=== PATIENT | female | born 1965 | race Caucasian/White ===

== ENCOUNTER → 2018-03-15 08:21 | Outpatient (CLI) | payer OTHER, SELFPAY ==
[2018-03-15 08:34] LABS: Basophils # 0.1 K/mm3 (0-0.2); Basophils % 0.9 % (0.1-2.0); Eosinophils # 0.2 K/mm3 (0.0-0.4); Eosinophils % 2.7 % (0.1-12.0); Hematocrit 41.5 % (37.0-47.0); Hemoglobin 13.7 g/dL (12.2-16.2); Lymphocytes % 28.4 K/mm3 (10-50); Mean Corpuscular HGB Conc 32.9 g/dL (31.8-35.4); Mean Corpuscular Volume 85.1 fl (81-99); Mean Platelet Volume 7.9 fl (7.4-10.4); Monocytes # 0.4 K/mm3 (0.1-1.0); Monocytes % 5.3 % (1.7-9.3); Neutrophils # 4.3 K/mm3 (1.8-7.8); Neutrophils % 62.8 % (37.0-80.0); Platelet Count 291 K/mm3 (142-424); Red Blood Count 4.88 M/mm3 (4.20-5.40); Red Cell Distribution Width 13.3 % (11.5-17.5); White Blood Count 6.9 K/mm3 (4.8-10.8)
[2018-03-15 09:30] LABS: Alanine Aminotransferase 19 U/L (12-78); Albumin Level 3.7 gm/dL (3.4-5.0); Albumin/Globulin Ratio 1.2 (1.1-1.8); Alkaline Phosphatase 64 U/L (46-116); Anion Gap 11.3 mEq/L (5-15); Aspartate Amino Transferase 13 U/L (15-37); Bilirubin,Total 0.4 mg/dL (0.2-1.0); Blood Urea Nitrogen 15 mg/dL (7-18); Calcium 8.5 mg/dL (8.5-10.1); Carbon Dioxide 28 mmol/L (21.0-32.0); Chloride 104 mmol/L (98-107); Chol/HDL Ratio 4.8 (1-3.5); Cholesterol 214 mg/dL (140-200); Creatinine,Serum 0.74 mg/dL (0.55-1.02); Estimated Glomerular Filt Rate 83 ml/min (>60); GFR (African American) 100 ML/MIN (>60); Glucose 90 mg/dL (74-106); HDL Cholesterol 45 mg/dL (29-89); LDL Cholesterol 150 mg/dL (0-130); Potassium 4.3 mmoL/L (3.5-5.1); Sodium 139 mmol/L (136-145); Total Protein,Serum 6.7 gm/dL (6.4-8.2); Triglycerides 93 mg/dL (30-200); VLDL Cholesterol 19 mg/dL (0-40)
== END ==
PROVIDERS: Visit Provider Nurse Practitioner Obstetrics & Gynecology
DX: Z01.419 Encounter for gynecological examination (general) (routine) without abnormal findings (principal); R53.82 Chronic fatigue, unspecified
CPT/HCPCS: 36415; 80053; 80061; 85025

== ENCOUNTER → 2018-03-18 16:30 | Outpatient (CLI) | payer OTHER, SELFPAY ==
--- NOTE | 2018-03-18 16:38 | MM_ITS ---
MM Dig screening mamm BI w/CAD CAD Screening ORDERING PHYSICIAN : Chuck Dey MD PATIENT AGE: 52 years GENDER: Female COMPARISON: Previous mammograms: February 2014, 2012, 2011 & 2010 INDICATION: . Routine screening. Hormone via implant previous cyst aspiration. Previous excisional biopsies 12:00 periareolar region right and left breast marked on history sheet. Family history: maternal aunt at 70. Also Paternal aunt. TECHNIQUE: Standard CC and MLO images were obtained. R2 CAD reviewed. FINDINGS: Dense breast bilaterally with dense fibroglandular elements at the central: The breasts extending slightly towards upper-outer quadrant. However we see no dominant mass nor suspicious calcification prior films are helpful expediently significant new findings. I would note mammography is of decreased sensitivity in breast of this diffuse increased density and low threshold for ultrasound breast survey suggested to compliment mammography in breast of this dense architecture, particularly if any palpable areas arise . RIGHT BREAST: Dense appearance throughout with no new findings. LEFT BREAST:Dense breast throughout with similar overall patterns that he back to 2012 ===IMPRESSION: ===== No significant new areas of concern . Dense breasts bilaterally which somewhat decreases the sensitivity of mammography, but no significant change BI-RADS Category: 2 Benign Finding(s) RECOMMENDED FOLLOW-UP: 1YR - 1 YEAR FOLLOW-UP (A letter has been sent to the patient regarding results of the study.) In
== END ==
PROVIDERS: PCP Physician Assistant; Visit Provider Nurse Practitioner Obstetrics & Gynecology
DX: Z12.31 Encounter for screening mammogram for malignant neoplasm of breast (principal)
CPT/HCPCS: 77067

== ENCOUNTER → 2018-05-05 14:51 | Outpatient (POV) | payer OTHER, SELFPAY | PROVIDERS: PCP Physician Assistant; Visit Provider Nurse Practitioner Acute Care | DX: Z00.00 Encounter for general adult medical examination without abnormal findings (principal) ==

== ENCOUNTER → 2019-04-16 15:36 | Outpatient (CLI) | payer OTHER, SELFPAY ==
--- NOTE | 2019-04-16 15:37 | MM_ITS ---
MM Dig screening mamm BI w/CAD ORDERING PHYSICIAN : Chuck Dey MD PATIENT AGE: 53 years GENDER: Female COMPARISON: March 2018, February 2014, INDICATION: ..: Routine Screening Mammogram. Takes progesterone. No new complaints Previous excisional biopsy both breasts. History sheet notes scars at upper-outer quadrant right breast 10 and 11:30 position Previous cyst aspiration. Family history: Maternal and paternal aunt with breast cancer TECHNIQUE: Standard CC and MLO images were obtained. R2 CAD reviewed. Additional axillary cc view both breast included FINDINGS: Dense breast pattern bilaterally which decreases the sensitivity of mammography. However No new focal dominant mass nor suspicious mass. No suspicious calcifications. . Prior films are helpful and supportive stable overall architecture & fibroglandular pattern. RIGHT BREAST:No new areas significant concern follow-up in one year LEFT BREAST:No significant new areas of concern. Ultrasound can be useful to compliment/augment mammography in breast of this dense character. Particularly applicable if any palpable areas arise ... Self breast examination may be of some benefit in this patient to compliment mammography as well in this this regard. IMPRESSION: No significant new areas of concern. Dense breast tissue bilaterally decreases to the mammography Bilateral follow-up in one year recommended, and encouraged. BI-RADS Category: 2 Benign Finding(s) RECOMMENDED FOLLOW-UP: 1YR 1 YEAR FOLLOW-UP (A letter has been sent to the patient regarding results of the study.)
== END ==
PROVIDERS: PCP Physician Assistant; Visit Provider Nurse Practitioner Obstetrics & Gynecology
DX: Z12.31 Encounter for screening mammogram for malignant neoplasm of breast (principal)
CPT/HCPCS: 77067

== ENCOUNTER → 2020-04-19 07:47 | Outpatient (CLI) | payer BC, SELFPAY ==
--- NOTE | 2020-04-19 07:48 | MM_ITS ---
PROCEDURE: MM DIG SCREENING MAMM BI W/CAD Digital Breast Tomosynthesis Included CLINICAL INDICATION: screening xmg There is a history of breast cancer patient's maternal aunt. The patient currently is on estrogen COMPARISON: [facility] DIG MAMM-SCREEN SUMEET from 03/11/2014 [facility] MM Dig screening mamm BI w/CAD from 03/18/2018 DIG MAMM-SCREEN SUMEET from 04/16/2019 TECHNIQUE: Standard CC and MLO images and 3D Tomosynthesis was obtained. R2 CAD reviewed. FINDINGS: Moderate diffuse fibroglandular densities are seen in both breast and the findings of bilateral and symmetrical. There is no new or suspicious lesion in either breast and no suspicious microcalcifications. IMPRESSION: Moderate diffuse breast density with no suspicious lesions seen BI-RAD Category: 1 Negative FOLLOW-UP: 1YR 1 Year Follow-up (A letter has been sent to the patient regarding results of the study.) Moderate diffuse fibroglandular Dictated by: Dr. Nain Rebollar MD 04/22/2020 08:[address] Nain Rebollar MD in [place] 04/22/2020 08:22
== END ==
PROVIDERS: PCP Physician Assistant; Visit Provider Nurse Practitioner Obstetrics & Gynecology
DX: Z12.31 Encounter for screening mammogram for malignant neoplasm of breast (principal)
CPT/HCPCS: 77063; 77067

== ENCOUNTER → 2020-12-14 13:48 | Outpatient (CLI) | payer BC, SELFPAY ==
--- NOTE | 2020-12-14 13:53 | US_ITS ---
PROCEDURE: MM DIG MAMM DX UNILAT RT CAD Digital Breast Tomosynthesis Included ULTRASOUND RIGHT BREAST COMPLETE CLINICAL INDICATION: MASTALGIA The COMPARISON: BB US BREAST-SUMEET from 04/19/2014 MG [facility] MM Dig screening mamm BI w/CAD from 03/18/2018 MG DIG MAMM-SCREEN SUMEET from 04/16/2019 MG MM DIG SCREENING MAMM BI W/CAD from 04/19/2020 US US BREAST RT COMPLETE from 12/14/2020 TECHNIQUE: Standard images of the right breast performed along with spot compression views and 3D tomography. Ultrasound right breast also performed. FINDINGS: There is dense fibroglandular tissue. This limits evaluation the breast and could obscure underlying lesions. No discrete mass. No malignant appearing mass or malignant-appearing microcalcification. There is some questionable calcifications in the superior aspect of the right breast. These however are not duplicated on the spot view and may have been due to artifact. Also not duplicated on the CC view. Right breast ultrasound: At the 10 o'clock region of the right breast there are 2 small hypoechoic nodules each measuring approximately 4 mm. These are indeterminate. At least 1 of these areas did appear to be present on 04/19/2014 and are unchanged. No suspicious nodules are evident. IMPRESSION: Probably benign findings. Recommend six-month sonographic and mammographic follow-up along with the left mammogram. BI-RAD Category: 3 Probably Benign Finding Short Term Follow-up FOLLOW-UP: 6M 6Month Follow-up (A letter has been sent to the patient regarding results of the study.) Dictated by: Tien Casarez MD 12/16/2020 12:05 Tien Casarez MD in [place] 12/16/2020 12:05
== END ==
PROVIDERS: PCP Physician Assistant; Visit Provider Physician Assistant
DX: N64.4 Mastodynia (principal)
CPT/HCPCS: 76641; 77061; 77065; G0279

== ENCOUNTER 2021-04-25 08:00 | Outpatient (RCR) | payer BC, SELFPAY | END 2021-04-26 14:00 | disposition home or self-care (01) | LOC: PT.CARL 08:00 | PROVIDERS: PCP Physician Assistant; Visit Provider Orthopaedic Surgery | DX: M75.22 Bicipital tendinitis, left shoulder (principal) | CPT/HCPCS: 97010; 97014; 97033; 97035; 97110; 97140; 97163; G0283 ==

== ENCOUNTER 2021-06-02 07:00 | Outpatient (RCR) | payer BC, SELFPAY | END 2021-07-17 11:27 | disposition home or self-care (01) | LOC: PT.CARL 07:00 | PROVIDERS: Visit Provider Orthopaedic Surgery | DX: M54.2 Cervicalgia (principal) | CPT/HCPCS: 97010; 97012; 97014; 97033; 97110; 97140; 97163; G0283 ==

== ENCOUNTER → 2021-06-16 13:49 | Outpatient (CLI) | payer BC, SELFPAY ==
--- NOTE | 2021-06-16 13:49 | MM_ITS ---
PROCEDURE: MM DIG MAMM BI DX W/CAD Digital Breast Tomosynthesis Included CLINICAL INDICATION: 6 month follow up to abnormal xmg COMPARISON: MG DIG MAMM-SCREEN SUMEET from 04/16/2019 MG MM DIG SCREENING MAMM BI W/CAD from 04/19/2020 MG MM DIG MAMM DX UNILAT RT CAD from 12/14/2020 US US BREAST RT COMPLETE from 12/14/2020 US US BREAST RT COMPLETE from 06/16/2021 TECHNIQUE: Standard CC and MLO images and 3D Tomosynthesis was obtained. R2 CAD reviewed. FINDINGS: Dense fibroglandular tissue. No malignant appearing mass, malignant-appearing microcalcification, architectural distortion, skin thickening asymmetric density. Right breast ultrasound: Stable 3 mm hypoechoic nodule in the outer right breast at 10 o'clock with additional stable hypoechoic nodule in the outer aspect of the right breast. No malignant appearing mass apparent. There is a 3 mm hypoechoic nodule also at 11 o'clock outer aspect unchanged IMPRESSION: Benign findings BI-RAD Category: 2 Benign Finding FOLLOW-UP: 1 YR 1 Year Follow-up (A letter has been sent to the patient regarding results of the study.) Dictated by: Tien Casarez MD 06/23/2021 17:46 Tien Casarez MD in [place] 06/23/2021 17:46
== END ==
PROVIDERS: PCP Physician Assistant; Visit Provider Nurse Practitioner Obstetrics & Gynecology
DX: R92.8 Other abnormal and inconclusive findings on diagnostic imaging of breast (principal)
CPT/HCPCS: 76641; 77062; 77066; G0279

== ENCOUNTER → 2021-11-29 07:56 | Outpatient (CLI) | payer BC, SELFPAY ==
[2021-11-29 14:11] LABS: Basophils # 0.1 K/mm3 (0-0.2); Basophils % 1.4 % (0.1-2.0); Eosinophils # 0.5 K/mm3 (0.0-0.4); Eosinophils % 8.1 % (0.1-12.0); Hematocrit 41.2 % (37.0-47.0); Hemoglobin 13.6 g/dL (12.2-16.2); Lymphocytes # 1.7 K/mm3 (0.7-4.5); Lymphocytes % 27.5 % (10-50); Mean Corpuscular Hemoglobin 27.9 pg (27.0-31.2); Mean Corpuscular Volume 84.6 fl (81-99); Mean Platelet Volume 9.2 fl (7.4-10.4); Monocytes # 0.3 K/mm3 (0.1-1.0); Neutrophils # 3.7 K/mm3 (1.8-7.8); Platelet Count 305 K/mm3 (142-424); Red Blood Count 4.87 M/mm3 (4.20-5.40); Red Cell Distribution Width 13.1 % (11.5-17.5); White Blood Count 6.3 K/mm3 (4.8-10.8)
[2021-11-29 14:40] LABS: Free T4 (Free Thyroxine) 0.83 ng/dl (0.78-2.19)
[2021-11-29 14:56] LABS: Thyroid Stimulating Hormone 1.64 uIU/mL (0.465-4.68)
[2021-11-30 12:15] LABS: Estradiol 49.6 pg/mL (.); Triiodothyronine (T3) Free 4.9 pg/mL (2.0-4.4)
[2021-12-01 22:08] LABS: Testost., % Free+Weakly Bound 9.4 % (3.0-18.0); Testost., FW Bound 4.3 ng/dL (0.0-9.5); Testosterone,Total 46 ng/dL (4-50)
== END ==
PROVIDERS: Visit Provider Physician Assistant
DX: I10 Essential (primary) hypertension (principal); E61.1 Iron deficiency; E34.1 Other hypersecretion of intestinal hormones; E03.9 Hypothyroidism, unspecified; D64.9 Anemia, unspecified; Z79.891 Long term (current) use of opiate analgesic
CPT/HCPCS: 36415; 82670; 84144; 84402; 84403; 84439; 84443; 84481; 85025

== ENCOUNTER → 2021-12-19 14:31 | Outpatient (POV) | payer BC, SELFPAY | PROVIDERS: Visit Provider Dermatology | DX: Z00.00 Encounter for general adult medical examination without abnormal findings (principal) ==

== ENCOUNTER 2022-01-15 08:00 | Outpatient (RCR) | payer BC, SELFPAY | END 2022-01-16 15:10 | disposition home or self-care (01) | LOC: PT.CARL 08:00 | PROVIDERS: PCP Physician Assistant; Visit Provider Orthopaedic Surgery | DX: M75.22 Bicipital tendinitis, left shoulder (principal); M75.42 Impingement syndrome of left shoulder; S46.212D Strain of muscle, fascia and tendon of other parts of biceps, left arm, subsequent encounter | CPT/HCPCS: 97010; 97014; 97033; 97035; 97110; 97140; 97163; 97164; 97530; G0283 ==

== ENCOUNTER → 2022-03-20 08:00 | Outpatient (POV) | payer BC, SELFPAY | PROVIDERS: Visit Provider Dermatology | DX: Z00.00 Encounter for general adult medical examination without abnormal findings (principal) ==

== ENCOUNTER → 2022-03-22 09:20 | Outpatient (CLI) | payer BC, SELFPAY ==
[2022-03-22 14:12] LABS: Basophils # 0.2 K/mm3 (0-0.2); Basophils % 2.1 % (0.1-2.0); Eosinophils # 0.6 K/mm3 (0.0-0.4); Eosinophils % 8.7 % (0.1-12.0); Hematocrit 40.2 % (37.0-47.0); Hemoglobin 13.4 g/dL (12.2-16.2); Lymphocytes # 1.7 K/mm3 (0.7-4.5); Lymphocytes % 23.4 % (10-50); Mean Corpuscular HGB Conc 33.3 g/dL (31.8-35.4); Mean Corpuscular Hemoglobin 28.9 pg (27.0-31.2); Mean Corpuscular Volume 86.9 fl (81-99); Monocytes # 0.4 K/mm3 (0.1-1.0); Monocytes % 5.7 % (1.7-9.3); Neutrophils # 4.4 K/mm3 (1.8-7.8); Neutrophils % 60.2 % (37.0-80.0); Platelet Count 284 K/mm3 (142-424); Red Blood Count 4.63 M/mm3 (4.20-5.40); Red Cell Distribution Width 13.3 % (11.5-17.5); White Blood Count 7.3 K/mm3 (4.8-10.8)
[2022-03-22 14:36] LABS: Free Thyroxine Index 2.3 ug/dL (5.93-13.13); T4 (Thyroxine) 7.8 ug/dl (5.53-11.0); Triiodothryronine (T3) Uptake 29 % (23.5-40.5)
[2022-03-22 14:49] LABS: Thyroid Stimulating Hormone 0.27 uIU/mL (0.465-4.68)
[2022-03-23 08:19] LABS: Estradiol 24.2 pg/mL (.); Progesterone 2.3 ng/mL (.); Triiodothyronine (T3) Free 3.8 pg/mL (2.0-4.4)
[2022-04-02 16:58] LABS: Testosterone, Total, LC/MS 76.2 ng/dL (.)
== END ==
PROVIDERS: Visit Provider Physician Assistant
DX: E03.4 Atrophy of thyroid (acquired) (principal); E61.1 Iron deficiency; I10 Essential (primary) hypertension; D64.9 Anemia, unspecified; R51.9 Headache, unspecified; R73.01 Impaired fasting glucose; Z13.9 Encounter for screening, unspecified; Z79.890 Hormone replacement therapy
CPT/HCPCS: 36415; 82670; 84144; 84403; 84436; 84443; 84479; 84481; 85025

== ENCOUNTER → 2022-05-22 13:09 | Outpatient (POV) | payer BC, SELFPAY | PROVIDERS: Visit Provider Dermatology | DX: Z00.00 Encounter for general adult medical examination without abnormal findings (principal) ==

== ENCOUNTER → 2022-06-22 07:44 | Outpatient (CLI) | payer BC, SELFPAY ==
--- NOTE | 2022-06-22 07:44 | MM_ITS ---
PROCEDURE INFORMATION: Exam: MG Bilateral Screening 3D Mammography Exam date and time: 06/22/2022 7:57 AM Age: 56 years old Clinical indication: Screening. Maternal aunt had breast cancer. TECHNIQUE: Imaging protocol: Bilateral Screening tomosynthesis and 2D mammography including computer-aided detection (CAD) when performed. COMPARISON: 1. MG MM DIG MAMM BI DX W/CAD 06/16/2021 1:51 PM 2. MG MM DIG MAMM DX UNILAT RT CAD 12/14/2020 2:13 PM 3. MG MM DIG SCREENING MAMM BI W/CAD 04/19/2020 8:00 AM 4. MG DIG MAMM-SCREEN SUMEET 04/16/2019 3:45 PM FINDINGS: MAMMOGRAPHY: Breast composition: The breasts are heterogeneously dense, which may obscure small masses. Mass: None. Architectural distortion: None. Calcifications: No suspicious calcifications. Asymmetric density: None. Skin thickening: None. Axillary adenopathy: None. IMPRESSION: No mammographic evidence of malignancy. Annual screening is recommended unless otherwise clinically indicated. ASSESSMENT: BI-RADS Category 1: Negative
== END ==
PROVIDERS: PCP Physician Assistant; Visit Provider Nurse Practitioner Obstetrics & Gynecology
DX: Z12.31 Encounter for screening mammogram for malignant neoplasm of breast (principal)
CPT/HCPCS: 77063; 77067

== ENCOUNTER → 2022-06-26 15:26 | Outpatient (POV) | payer BC, SELFPAY | PROVIDERS: Visit Provider Dermatology | DX: Z00.00 Encounter for general adult medical examination without abnormal findings (principal) ==

== ENCOUNTER 2022-06-28 21:29 | Emergency (ER) | payer BC, SELFPAY ==
[2022-06-28 22:35] VITALS: BP 0/0; PULSE 0; RESP 0; TEMP -17.7; TEMP 0; O2SAT 0
== END 2022-06-28 22:49 | disposition left against medical advice (07) ==
LOC: ER 22:39
PROVIDERS: Emergency Provider Emergency Medicine; PCP Physician Assistant
DX: Z53.21 Procedure and treatment not carried out due to patient leaving prior to being seen by health care provider (principal)

== ENCOUNTER → 2022-07-17 08:06 | Outpatient (POV) | payer BC, SELFPAY | PROVIDERS: Visit Provider Dermatology | DX: Z00.00 Encounter for general adult medical examination without abnormal findings (principal) ==

== ENCOUNTER → 2022-07-24 09:40 | Outpatient (CLI) | payer BC, SELFPAY ==
[2022-07-24 15:56] LABS: Basophils # 0.1 K/mm3 (0-0.2); Basophils % 1.7 % (0.1-2.0); Eosinophils # 0.8 K/mm3 (0.0-0.4); Eosinophils % 9.5 % (0.1-12.0); Hematocrit 43.3 % (37.0-47.0); Hemoglobin 13.6 g/dL (12.2-16.2); Lymphocytes % 24.6 % (10-50); Mean Corpuscular HGB Conc 31.5 g/dL (31.8-35.4); Mean Corpuscular Hemoglobin 27.8 pg (27.0-31.2); Mean Corpuscular Volume 88.3 fl (81-99); Mean Platelet Volume 9.9 fl (7.4-10.4); Monocytes # 0.4 K/mm3 (0.1-1.0); Monocytes % 4.9 % (1.7-9.3); Neutrophils # 4.8 K/mm3 (1.8-7.8); Neutrophils % 59.5 % (37.0-80.0); Platelet Count 342 K/mm3 (142-424); Red Cell Distribution Width 13.3 % (11.5-17.5); White Blood Count 8.1 K/mm3 (4.8-10.8)
[2022-07-24 16:30] LABS: Free T4 (Free Thyroxine) 0.96 ng/dl (0.78-2.19)
[2022-07-24 16:45] LABS: Thyroid Stimulating Hormone 0.32 uIU/mL (0.465-4.68)
[2022-07-26 08:14] LABS: Triiodothyronine (T3) Free 4.1 pg/mL (2.0-4.4)
[2022-07-26 11:32] LABS: Progesterone 4.4 ng/mL (.)
[2022-08-02 00:08] LABS: Testosterone, Total, LC/MS 54 ng/dL (.)
== END ==
PROVIDERS: PCP Physician Assistant; Visit Provider General Practice
DX: E03.4 Atrophy of thyroid (acquired) (principal); R73.01 Impaired fasting glucose; I10 Essential (primary) hypertension; R51.9 Headache, unspecified; E61.1 Iron deficiency; D64.9 Anemia, unspecified; Z79.890 Hormone replacement therapy; Z13.9 Encounter for screening, unspecified
CPT/HCPCS: 36415; 82670; 84144; 84403; 84439; 84443; 84481; 85025

== ENCOUNTER → 2022-08-21 07:58 | Outpatient (POV) | payer BC, SELFPAY | PROVIDERS: Visit Provider Dermatology | DX: Z00.00 Encounter for general adult medical examination without abnormal findings (principal) ==

== ENCOUNTER → 2022-12-07 14:45 | Outpatient (CLI) | payer BC, SELFPAY ==
--- NOTE | 2022-12-07 14:45 | CT_ITS ---
FINAL REPORT CLINICAL HISTORY: lung cancer screening FORMER SMOKER 1 PPD X30 YEARS WHEN SMOKING QUIT 8 YEARS AGO FINDINGS: Axial images were obtained from the lung apex to the mid abdomen by computed tomography. Low-dose protocol was utilized. CTDl vol(mGy): 2.90 DLP (mGy-cm): 96.64 FINDINGS: There is no axillary adenopathy. There is no hilar or mediastinal adenopathy. The heart size is normal. There is no pericardial or pleural effusion. Lung window images demonstrate a 14 mm ground-glass nodule in the anterior left upper lobe on image 13. There is a 4 mm lingular nodule on image 52. There is a 4 mm left lower lobe nodule on image 58. A 3 mm right lower lobe nodule is seen on image 44. Limited images of the upper abdomen are without acute abnormality. There is no acute osseous abnormality. IMPRESSION: Lung RADS category 2. Recommend 12 month follow-up low-dose chest CT. Reviewed, Interpreted and Dictated by Cherri Hinojosa MD Transcribed by Amy Hood Authenticated and [facility]
== END ==
PROVIDERS: PCP Physician Assistant; Visit Provider Physician Assistant
DX: Z87.891 Personal history of nicotine dependence (principal); Z12.2 Encounter for screening for malignant neoplasm of respiratory organs
CPT/HCPCS: 71271

== ENCOUNTER → 2022-12-24 19:13 | Outpatient (CLI) | payer BC, SELFPAY ==
[2023-01-01 15:37] LABS: F001-IgE Egg White <0.10 kU/L (Class 0); F002-IgE Milk 0.23 kU/L (Class 0/I); F003-IgE Codfish <0.10 kU/L (Class 0); F004-IgE Wheat <0.10 kU/L (Class 0); F010-IgE Sesame Seed <0.10 kU/L (Class 0); F013-IgE Peanut <0.10 kU/L (Class 0); F014-IgE Soybean <0.10 kU/L (Class 0); F024-IgE Shrimp <0.10 kU/L (Class 0); F256-IgE Walnut <0.10 kU/L (Class 0); F338-IgE Scallop <0.10 kU/L (Class 0)
== END ==
PROVIDERS: PCP Physician Assistant; Visit Provider Internal Medicine Gastroenterology
DX: K20.0 Eosinophilic esophagitis (principal)
CPT/HCPCS: 86003; 86008

== ENCOUNTER → 2023-02-18 14:21 | Outpatient (CLI) | payer BC, SELFPAY ==
--- NOTE | 2023-02-18 14:25 | XR_ITS ---
FINAL REPORT CLINICAL HISTORY: pain left foot x 10 days FINDINGS: LEFT FOOT Three views of the left foot demonstrate no acute fracture or dislocation. The visualized joint spaces are normally aligned. The joint spaces are preserved. The soft tissues are unremarkable. IMPRESSION: No acute bony abnormality. Reviewed, Interpreted and Dictated by Shilo Harper MD Transcribed by Zulay Locke Authenticated and [facility]
== END ==
PROVIDERS: PCP Physician Assistant; Visit Provider Nurse Practitioner Family
DX: M79.672 Pain in left foot (principal)
CPT/HCPCS: 73630

== ENCOUNTER → 2023-07-05 15:18 | Outpatient (CLI) | payer BC, SELFPAY ==
--- NOTE | 2023-07-05 15:18 | MM_ITS ---
PROCEDURE INFORMATION: Exam: MG Bilateral Screening 3D Mammography Exam date and time: 07/05/2023 3:20 PM Age: 57 years old Clinical indication: Screening examination; Family history of breast cancer in aunt TECHNIQUE: Imaging protocol: Bilateral Screening tomosynthesis and 2D mammography including computer-aided detection (CAD) when performed. COMPARISON: 1. MG MM DIG SCREENING MAMM BI W/CAD 06/22/2022 7:57 AM 2. MG MM DIG MAMM BI DX W/CAD 06/16/2021 1:51 PM FINDINGS: MAMMOGRAPHY: Breast composition: The breasts are extremely dense, which lowers the sensitivity of mammography. Mass: None. Architectural distortion: None. Calcifications: No suspicious calcifications. Asymmetric density: None. Skin thickening: None. Axillary adenopathy: None. IMPRESSION: No mammographic evidence of malignancy. Annual screening is recommended unless otherwise clinically indicated. ASSESSMENT: BI-RADS Category 1: Negative
== END ==
PROVIDERS: PCP Physician Assistant; Visit Provider Nurse Practitioner Obstetrics & Gynecology
DX: Z12.31 Encounter for screening mammogram for malignant neoplasm of breast (principal)
CPT/HCPCS: 77063; 77067

== ENCOUNTER → 2023-07-15 09:43 | Outpatient (CLI) | payer BC, SELFPAY ==
--- NOTE | 2023-07-15 09:44 | US_ITS ---
PROCEDURE INFORMATION: Exam: US Right Breast, Complete Exam date and time: 07/15/2023 9:51 AM Age: 57 years old Clinical indication: Concern for right breast lump. Negative extremely dense mammogram 07/05/2023. TECHNIQUE: Imaging protocol: Complete ultrasound of all four quadrants of the right breast and the retroareolar regions, including ultrasound of the axilla when performed. COMPARISON: 1. MG MM DIG SCREENING MAMM BI W/CAD 07/05/2023 3:20 PM 2. US BREAST RT COMPLETE 06/16/2021 2:42 PM FINDINGS: Breast: Right sonography, all 4 quadrants, retroareolar and axilla. Scattered oval hypoechoic avascular masses which are probably complicated avascular cysts, in a similar pattern to 06/16/2021 - the finding at 9 o'clock 6 cm from the nipple corresponds to the palpable concern and measures 0.4 x 0.3 x 0.4 cm. On 06/16/2021, several findings noted at 10 o'clock, the largest measures 0.4 x 0.2 by 0.3 cm. No suspicious cystic and no solid mass demonstrated. Sonographically unremarkable axillary lymph node. IMPRESSION: Palpable concern corresponds to a 0.4 cm probable complicated cyst which is similar to 06/16/2021, correlate clinically and suggest six-month follow-up right sonography unless otherwise clinically indicated.Further evaluation of a palpable abnormality should be based on clinical grounds regardless of radiographic findings or lack thereof. ASSESSMENT: BI-RADS Category 3: Probably benign
== END ==
LOC: RAD 09:44
PROVIDERS: PCP Physician Assistant; Visit Provider Nurse Practitioner Obstetrics & Gynecology
DX: N63.10 Unspecified lump in the right breast, unspecified quadrant (principal)
CPT/HCPCS: 76641

== ENCOUNTER → 2023-10-08 09:01 | Outpatient (CLI) | payer BC, SELFPAY | PROVIDERS: PCP Physician Assistant; Visit Provider Nurse Practitioner Family | DX: M54.50 Low back pain, unspecified (principal); B96.89 Other specified bacterial agents as the cause of diseases classified elsewhere | CPT/HCPCS: 87086 ==

== ENCOUNTER 2023-12-27 15:21 | Outpatient (CLI) | payer BC, SELFPAY ==
--- NOTE | 2023-12-27 15:21 | CT_ITS ---
FINAL REPORT CLINICAL HISTORY: lung cancer screening former smoker x 9 years 2 ppd x 25 yrs FINDINGS: CTDI vol (mGy): 2.90 DLP: 104.[address] images of the chest were obtained using the low-dose protocol for screening. There is no evidence of mediastinal or hilar mass or adenopathy. No axillary mass or adenopathy is identified. On the lung window images, a 15 mm groundglass nodule seen in the left upper lobe which has not significantly changed. There is a lingular nodule measuring 4 mm on image 54 and a 4 mm left lower lobe nodule on image 64 which are both stable. There are calcified granulomas noted. No new mass or nodule is identified. IMPRESSION: Stable pulmonary nodules Lung RADS category 2. Recommend 12 month followup low-dose CT for further evaluation. Reviewed, Interpreted and Dictated by Balaji Marina III, MD Transcribed by Gaye Larsen Authenticated and [facility]
== END 2023-12-27 23:59 ==
LOC: RAD 15:21
PROVIDERS: PCP Nurse Practitioner Family; Visit Provider Nurse Practitioner Obstetrics & Gynecology
DX: Z12.2 Encounter for screening for malignant neoplasm of respiratory organs (principal); Z87.891 Personal history of nicotine dependence
CPT/HCPCS: 71271

== ENCOUNTER 2024-09-08 07:55 | Outpatient (CLI) | payer BC, SELFPAY ==
--- NOTE | 2024-09-08 07:55 | MM_ITS ---
PROCEDURE INFORMATION: Exam: MG Bilateral Screening 3D Mammography Exam date and time: 09/08/2024 7:49 AM Age: 59 years old Clinical indication: Screening exam. TECHNIQUE: Imaging protocol: Bilateral Screening tomosynthesis and 2D mammography including computer-aided detection (CAD) when performed. COMPARISON: 1. MG MM DIG SCREENING MAMM BI W/CAD 07/05/2023 3:20 PM 2. MG MM DIG SCREENING MAMM BI W/CAD 06/22/2022 7:57 AM FINDINGS: MAMMOGRAPHY: Breast composition: The breasts are extremely dense, which lowers the sensitivity of mammography. Mass: No suspicious masses. Architectural distortion: None. Calcifications: No suspicious calcifications. Asymmetric density: None. Skin thickening: None. Axillary adenopathy: None. IMPRESSION: No mammographic evidence of malignancy. Annual screening is recommended unless otherwise clinically indicated. ASSESSMENT: BI-RADS Category 1: Negative.
== END 2024-09-08 23:59 | disposition home or self-care (01) ==
LOC: RAD 07:55
PROVIDERS: PCP Family Medicine; Visit Provider Nurse Practitioner Obstetrics & Gynecology
DX: Z12.31 Encounter for screening mammogram for malignant neoplasm of breast (principal)
CPT/HCPCS: 77063; 77067

== ENCOUNTER 2025-01-22 12:18 | Outpatient (CLI) | payer BC, SELFPAY ==
--- NOTE | 2025-01-22 12:22 | US_ITS ---
PROCEDURE INFORMATION: Exam: US Right Breast, Complete Exam date and time: 01/22/2025 12:20 PM Age: 59 years old Clinical indication: Palpable lump in the right breast upper outer quadrant. TECHNIQUE: Imaging protocol: Complete ultrasound of all four quadrants of the right breast and the retroareolar regions, including ultrasound of the axilla when performed. COMPARISON: US BREAST RT COMPLETE 07/15/2023 9:51 AM FINDINGS: ULTRASOUND: Breast ultrasound findings: In the right breast upper outer quadrant at the palpable area of concern, there is a complicated cyst measuring 0.4 x 0.4 x 0.4 cm. Other scattered sub cm similar simple and complicated cysts are noted throughout the right breast. There is no dominant mass, suspicious shadowing, or distortion. No axillary adenopathy. IMPRESSION: 1. Probably benign cystic changes in the right upper outer quadrant, without a dominant or suspicious finding. Continued clinical monitoring is recommended, with performance of mammography and repeat ultrasound if the palpable area becomes more concerning. Further evaluation of a palpable abnormality should be based on clinical grounds regardless of radiographic findings or lack thereof. 2. Six-month follow-up ultrasound of the right breast is recommended, for close surveillance of the cystic areas in the upper-outer quadrant. ASSESSMENT: BI-RADS Category 3: Probably benign.
== END 2025-01-22 23:59 | disposition home or self-care (01) ==
LOC: RAD 12:19
PROVIDERS: PCP Nurse Practitioner Family; Visit Provider Nurse Practitioner Family
DX: N63.11 Unspecified lump in the right breast, upper outer quadrant (principal)
CPT/HCPCS: 76641

== ENCOUNTER 2025-02-10 10:17 | Outpatient (CLI) | payer BC, SELFPAY ==
[2025-02-10 10:37] LABS: Basophils # 0.1 K/mm3 (0-0.2); Basophils % 1.2 % (0.1-2.0); Eosinophils # 0.2 K/mm3 (0.0-0.4); Eosinophils % 3.1 % (0.1-12.0); Hematocrit 37.9 % (37.0-47.0); Hemoglobin 12.9 g/dL (12.2-16.2); Mean Corpuscular Hemoglobin 28.8 pg (27.0-31.2); Mean Corpuscular Volume 84.6 fl (81-99); Mean Platelet Volume 10.1 fl (7.4-10.4); Monocytes # 0.5 K/mm3 (0.1-1.0); Monocytes % 6.8 % (1.7-9.3); Neutrophils # 4.7 K/mm3 (1.8-7.8); Neutrophils % 62.5 % (37.0-80.0); Platelet Count 268 K/mm3 (142-424); Red Blood Count 4.48 M/mm3 (4.20-5.40); Red Cell Distribution Width 12.9 % (11.5-17.5); White Blood Count 7.5 K/mm3 (4.8-10.8)
[2025-02-10 11:07] LABS: Anion Gap 14.1 mEq/L (5-15); Blood Urea Nitrogen 13 mg/dl (7-17); Calcium 9.4 mg/dl (8.4-10.2); Carbon Dioxide 29 mmol/L (22.0-30.0); Chloride 98 mmol/L (98-107); Estimated Glomerular Filt Rate 86 ml/min (>60); GFR (African American) 104 ML/MIN (>60); Glucose 80 mg/dl (74-100); Potassium 4.1 mmoL/L (3.5-5.1); Sodium 137 mmol/L (136-145)
[2025-02-10] MEDS: KETOROLAC 30MG/ML VIAL 15 MG IM (11:15)
[2025-02-10 11:30] VITALS: BP 122/83; PULSE 72; RESP 18; TEMP 36.6; O2SAT 96
== END 2025-02-10 11:30 | disposition home or self-care (01) ==
LOC: LAB 10:18 → INF 10:35
PROVIDERS: PCP Nurse Practitioner Family; Visit Provider Surgery
DX: N60.01 Solitary cyst of right breast (principal)
CPT/HCPCS: 36415; 80048; 85025; 96372; J1885

== ENCOUNTER 2025-03-17 09:53 | Outpatient (CLI) | payer BC, SELFPAY ==
--- OUTSIDE RECORDS SUMMARY | 2025-03-17 09:57 | XMS_ITS | Clinical Summary ---
Author Organization [facility] , [facility] Address [address] [place] [address] Phone Care Team Providers Care Automotive Consultant Name Role Phone Robson WISDOM, Celio Cerda Unavailable [phone] Constanza Cannon PA-C Unavailable [phone] Reason for Visit and Chief Complaint The Chief Complaint is: right knee pain, The Chief Complaint is: victorino knee pain Problems Includes: Problems addressed during this encounter and other active Problems All Visits Onset Date Resolved Date Provider Condition S tatus Joint Pain in the Right Knee 05/05/2024 Shikha Solano PA-C Active Last Documented On 4 8:57AM ; [facility], [facility] Joint Pain in the Left Wrist 03/22/2021 Celio Chance MD Active Last Documented On 1 3:14PM ; [facility], [facility] Joint Pain, Localized in the Left Shoulder 03/22/2021 Celio Chance MD Active Last Documented On 1 8:09AM ; [facility], [facility] Plan of Treatment No Plan of Treatment Recorded Assessments Includes: Assessments from this encounter No Assessments Recorded Medical Equipment - Implanted Devices Includes: Current Devices No Medical Equipment Recorded Medications Includes: Medications discussed during this encounter and other current Medications Current Medications (continue as prescribed) Escitalopram Oxalate 10 MG Oral Tablet 12/14/2024 Pr ovider: Diagnosis: Last Documented On 5 9:25AM By Mitchell Mccormack ; [facility], [facility] Omeprazole 40 MG Oral Capsule Delayed Release 12/13/19 Provider: Diagnosis: Last Documented On 5 9:25AM By Mitchell Mccormack ; [facility], [facility] Atorvastatin Calcium 10 MG Oral Tablet 12/01/2024 Pr ovider: Diagnosis: Last Documented On 5 9:25AM By Mitchell Mccormack ; [facility], [facility] Omeprazole 40 MG Oral Capsule Delayed Release 09/24/20 Provider: Diagnosis: Last Documented On 5 9:25AM By Mitchell Mccormack ; [facility], [facility] Fluconazole 150 MG Oral Tablet 07/22/2024 Provider: Diagnosis: Last Documented On 5 9:25AM By Mitchell Mccormack ; [facility], [facility] Past Medications on file Percocet 5-325 MG Oral Tablet 10/06/2021 - 10/21/2021 Provider: Celio Chance MD Diagnosis: 1 po q 4h prn pain Last Documented On 12:54PM By Celio Chance ; [facility], [facility] Medications Administered Includes: Administered Medications from this encounter No Administered Medications Recorded Vital Signs Includes: Vital Signs from this encounter Vital Name 01/15/2025 03:26P Height (in) 69 Weight (lb) 162 Body Mass Index 23.9 Body Surface Area 1.9 Note: mgg Last Documented: On 01/15/2025 3:27PM ; [facility] Results Includes: Results discussed during this encounter No Results Recorded For Specified Dates History of Present Illness Includes: History of Present Illness from this encounter NIKIA Gates is a 59 year old female. - Allergy list reviewed - Problem list reviewed - Medication list reviewed - Previous history of new onset pain 04/28/2024 - Pain is occasional (25% of the time) - Patient pain level from 1-10: 5 - Yes, previous treatment. - - Review of medications documented Patient here today for orthovisc injection #4 of right knee and orthovisc injection #1 of left knee. Review of systems: All systems within normal limits with exception of musculoskeletal The patient's medications, medication allergies, Past Medical and Surgical History, pertinent Family History, Social History and ten point Review of Systems was reviewed by me with the patient per the registration sheet dated today. It was then signed today and scanned into the electronic record. Physical Exam: CONSTITUTIONAL: Well developed, well groomed, well nourished patient in no acute distress who appears stated age, height and weight. PSYCHIATRIC: The patient is alert and oriented to person, place, date and situation. Mood and affect are normal for current situation. NEUROLOGICAL: Sensation normal bilateral upper and lower extremities. LYMPHATIC: No pitting edema noted in the lower extremities. SKIN: No lesions noted on upper or lower extremities. Skin is dry, warm and with normal turgor. VASCULAR: No swelling in upper or lower extremities other than described below in extremity exam. Dorsalis Pedis Pulses normal in lower extremities. GAIT AND STATION: Normal gait without assistive devices. Station normal. Musculoskeletal: See previous Imaging: Previous imaging obtained THERAPY Right Knee: The risks of the procedure were explained and verbally acknowledged by the patient. Verbal consent was obtained. The knee was prepped with an alcohol pad. The knee was then put in a flexed position in the intercondylar notch was palpated. The skin at the site of injection was then anesthetized with ethyl chloride spray. A 25-gauge needle was inserted into the retropatellar space. Aspiration was done, confirming no intravascular location. The Orthovisc was then injected into the anterior space of the knee joint without complication. The needle was withdrawn and Band-Aid was applied. Patient tolerated procedure well. Left Knee: The risks of the procedure were explained and verbally acknowledged by the patient. Verbal consent was obtained. The knee was prepped with an alcohol pad. The knee was then put in a flexed position in the intercondylar notch was palpated. The skin at the site of injection was then anesthetized with ethyl chloride spray. A 25- gauge needle was inserted into the retropatellar space. Aspiration was done, confirming no intravascular location. The Orthovisc was then injected into the anterior space of the knee joint without complication. The needle was withdrawn and Band-Aid was applied. Patient tolerated procedure well. Assessment: Right Knee OA Left Knee OA PAST TREATMENT: Patient has failed all conservative measures including the following: Ice, anti inflammatory medication, physical therapy, steroid injections Plan: Patient was given Orthovisc injection 4 of right knee and Orthovisc injection 1 of left knee. She will return next week for repeat injection of the left knee. Social History Description Last Updated Caffeine use 05/05/2024 Last Documented On 3:24PM ; [facility], [facility] Exercising regularly 05/05/2024 Last Documented On 5 3:24PM ; [facility] No recent change in diet 05/05/2024 Last Documented On 5 3:24PM ; [facility] Not a current smoker. 05/05/2024 Last Documented On 5 3:24PM ; [facility] Not using alcohol 05/05/2024 Last Documented On 5 3:24PM ; [facility] Not using drugs 05/05/2024 Last Documented On 5 3:24PM ; [facility], [facility] No recent change in diet 06/05/2021 Last Documented On 5 3:24PM ; [facility] Not a current smoker. 06/05/2021 Last Documented On 5 3:24PM ; [facility] Non-smoker 06/05/2021 Last Documented On 5 3:24PM ; [facility] Smoking Status Unknown Procedures and Surgical History Includes: Procedures from this encounter Procedures Code Diagnosis Performing Provider Service Location Service Date DRAIN/INJECT, JOINT/BURSA (Bilateral Procedure) Bilateral primary osteoarthritis of knee Shikha Solano PA-C [facility] 01/15/2025 Last Documented On 5 3:10PM ; [facility] Orthovisc [place], 2cc (RIGHT) [id number] Unilateral primary osteoarthritis, right knee Shikha Solano PA-C [facility] 01/15/2025 Last Documented On 5 3:10PM ; [facility] Orthovisc [place], 2cc (LEFT) [id number] Unilateral primary osteoarthritis, left knee Shikha Solano PA-C [facility] 01/15/2025 Last Documented On 5 3:10PM ; [facility] Medical History Includes: Medical History addressed during this encounter Description Last Updated Past surgical history non-contributory 0 05/05/2024 Last Documented On 5 3:24PM ; [facility] History of Thyroid Disease 05/05/2024 Last Documented On 5 3:24PM ; [facility] History of depression 06/05/2021 Last Documented On 5 3:24PM ; [facility] No recent immunization for flu 1 Last Documented On 5 3:24PM ; [facility] No recent immunization for pneumococcal pneumonia 06/05/2021 Last Documented On 5 3:24PM ; [facility] Family History Includes: Family History addressed during this encounter Description Last Updated Family history of cancer 05/05/2024 Last Documented On 5 3:24PM ; [facility] Family history of heart disease 05/05/20 Last Documented On 5 3:24PM ; [facility] Review of Systems Includes: Review of Systems from this encounter Systemic: Not feeling tired, no recent weight loss, and no recent weight gain. Head: No headache and no sinus pain. Eyes: No vision problems, no Cataracts, no Glasses/Contacts, and no Glaucoma. Otolaryngeal: No hearing loss and no tinnitus. Cardiovascular: No chest pain or discomfort, no palpitations, no Hypertension, and no High Cholesterol. Pulmonary: No daytime asthma symptoms and no chronic cough. No wheezing. Gastrointestinal: No heartburn and no abdominal pain. No Indigestion, no Peptic Ulcer, no GI Stomach Bleed, no Ulcers, and no Acid Reflux. Endocrine: No hot flashes, no muscle weakness, no Diabetes, no Hypothyroid, and no Hyperthyroid. Hematologic: No easy bleeding. A tendency for easy bruising. No Anemia. Musculoskeletal: No Arthritis and no lower back pain. No soft tissue swelling. Pain localized to one or more joints. Neurological: No dizziness, no convulsions, and no numbness. Psychological: Anxiety. No emotional lability, no depression, and no insomnia. Not crying for no reason. Skin: No dry skin. No Ulcers, no Scars, and no rash. Allergic and Immunologic: No complaint of seasonal allergic reaction. Mental Status Includes: Mental Status from this encounter Description Anxiety Functional Status Includes: Functional Status from this encounter No Functional Status Recorded Physical Exam Includes: Physical Exam from this encounter Allergies Includes: Active Allergies Substance Type Reaction Onset Date Resolved Date Statu s Biaxin Allergy 05/05/2024 Active Last Documented On 5 1:44PM ; [facility], [facility] Encounters Encounter Provider Location Date Check-In Time Check-Out Time Diagnosis [facility] In[facility] Shikha Solano PA-C [facility] 01/15/20 25 3:22PM 4:13PM Insurance Includes: Active Insurance Policies Plan Name Member ID Group # Subscriber Relationship Effect paris Dates 1 - [facility] [id number] Bette, Petrosreg 11/18/2020 - Unknown Clinical Notes Includes: Clinical Notes from this encounter * Progress note Date Encounter Last Documented by 01/15/2025 [facility] In[facility] Last documented on 01/15/2025; 4:30 PM, Shikha Solano PA-C; [facility], [facility] Active Problems & Conditions - Joint Pain in the Left Wrist - Joint Pain in the Right Knee - Joint Pain, Localized in the Left Shoulder Chief Complaint The Chief Complaint is: Victorino knee painThe Chief Complaint is: Right knee pain. Referred Here Referred by self. History of Present Illness Nilay Gates is a 59 year old female. - Allergy list reviewed - Problem list reviewed - Medication list reviewed - Previous history of new onset pain 04/28/2024 - Pain is occasional (25% of the time) - Patient pain level from 1-10: 5 - Yes, previous treatment. - - Review of medications documented Patient here today for orthovisc injection #4 of right knee and orthovisc injection #1 of left knee. Review of systems: All systems within normal limits with exception of musculoskeletal The patient's medications, medication allergies, Past Medical and Surgical History, pertinent Family History, Social History and ten point Review of Systems was reviewed by me with the patient per the registration sheet dated today. It was then signed today and scanned into the electronic record. Physical Exam: CONSTITUTIONAL: Well developed, well groomed, well nourished patient in no acute distress who appears stated age, height and weight. PSYCHIATRIC: The patient is alert and oriented to person, place, date and situation. Mood and affect are normal for current situation. NEUROLOGICAL: Sensation normal bilateral upper and lower extremities. LYMPHATIC: No pitting edema noted in the lower extremities. SKIN: No lesions noted on upper or lower extremities. Skin is dry, warm and with normal turgor. VASCULAR: No swelling in upper or lower extremities other than described below in extremity exam. Dorsalis Pedis Pulses normal in lower extremities. GAIT AND STATION: Normal gait without assistive devices. Station normal. Musculoskeletal: See previous Imaging: Previous imaging obtained THERAPY Right Knee: The risks of the procedure were explained and verbally acknowledged by the patient. Verbal consent was obtained. The knee was prepped with an alcohol pad. The knee was then put in a flexed position in the intercondylar notch was palpated. The skin at the site of injection was then anesthetized with ethyl chloride spray. A 25-gauge needle was inserted into the retropatellar space. Aspiration was done, confirming no intravascular location. The Orthovisc was then injected into the anterior space of the knee joint without complication. The needle was withdrawn and Band-Aid was applied. Patient tolerated procedure well. Left Knee: The risks of the procedure were explained and verbally acknowledged by the patient. Verbal consent was obtained. The knee was prepped with an alcohol pad. The knee was then put in a flexed position in the intercondylar notch was palpated. The skin at the site of injection was then anesthetized with ethyl chloride spray. A 25- gauge needle was inserted into the retropatellar space. Aspiration was done, confirming no intravascular location. The Orthovisc was then injected into the anterior space of the knee joint without complication. The needle was withdrawn and Band-Aid was applied. Patient tolerated procedure well. Assessment: Right Knee OA Left Knee OA PAST TREATMENT: Patient has failed all conservative measures including the following: Ice, anti inflammatory medication, physical therapy, steroid injections Plan: Patient was given Orthovisc injection 4 of right knee and Orthovisc injection 1 of left knee. She will return next week for repeat injection of the left knee. Current Medication - Atorvastatin Calcium 10 MG Oral Tablet 90 days, 0 refills - Escitalopram Oxalate 10 MG Oral Tablet 90 days, 0 refills - Lexapro 10 MG Oral Tablet take as directed 0 days, 0 refills - Lipitor 10 MG Oral Tablet take as directed 0 days, 0 refills - STITCH MARKER Thyroid 60 MG Oral Tablet 30 days, 0 refills - Omeprazole 40 MG Oral Capsule Delayed Release 90 days, 0 refills Past Medical/Surgical History Reported: Immunization History: No recent immunization for flu and not for pneumococcal pneumonia. Diagnoses: Thyroid Disease. Depression Past surgical history non-contributory. Social History Not a current smoker. Not a current smoker. Current diet: No recent change in diet. No recent change in diet. Caffeine use: Caffeine use. Tobacco use: Non-smoker. Alcohol: Not using alcohol. Drug Use: Not using drugs. Habits: Exercising regularly. Allergies - Biaxin Family History Cancer Heart disease Review Of Systems Systemic: Not feeling tired, no recent weight loss, and no recent weight gain. Head: No headache and no sinus pain. Eyes: No vision problems, no Cataracts, no Glasses/Contacts, and no Glaucoma. Otolaryngeal: No hearing loss and no tinnitus. Cardiovascular: No chest pain or discomfort, no palpitations, no Hypertension, and no High Cholesterol. Pulmonary: No daytime asthma symptoms and no chronic cough. No wheezing. Gastrointestinal: No heartburn and no abdominal pain. No Indigestion, no Peptic Ulcer, no GI Stomach Bleed, no Ulcers, and no Acid Reflux. Endocrine: No hot flashes, no muscle weakness, no Diabetes, no Hypothyroid, and no Hyperthyroid. Hematologic: No easy bleeding. A tendency for easy bruising. No Anemia. Musculoskeletal: No Arthritis and no lower back pain. No soft tissue swelling. Pain localized to one or more joints. Neurological: No dizziness, no convulsions, and no numbness. Psychological: Anxiety. No emotional lability, no depression, and no insomnia. Not crying for no reason. Skin: No dry skin. No Ulcers, no Scars, and no rash. Allergic and Immunologic: No complaint of seasonal allergic reaction. Physical Findings - Vitals taken 01/15/2025 03:26 pm mgg Height 69 in Weight 162 lbs Body Mass Index 23.9 kg/m2 Body Surface Area 1.9 m2 Counseling/Education - Tobacco non-user - Use of tobacco assessment performed Notes This dictation was done with voice recognition software and may contain errors and omissions. This dictation was done with voice recognition software and may contain errors and omissions. This dictation was done with voice recognition software and may contain errors and omissions. This dictation was done with voice recognition software and may contain errors and omissions. Care Team - Constanza Cannon PA-C Health Reminders - Assess BMI satisfied 01/15/2025. - Assess Tobacco Use satisfied 01/15/2025.
--- OUTSIDE RECORDS SUMMARY | 2025-03-17 09:57 | XMS_ITS | Data Portability ---
Author Organization [facility] Address [address] [place] [address] Care Team Providers Care Anti Tank Missileman Name Role Phone HYUN CANCHOLA Primary Care Provider [phone] Assessment No assessment recorded. Plan of Treatment Reminders Order Date Submit Date Provider Last Modified By Organization Details Last Modified Time Details Appointments None record ed. Lab None record ed. Referral None record ed. Procedures None record ed. Surgeries None record ed. Imaging None record ed. Medication Orders None record ed. Patient TargetsNo targets recorded. Patient Instructions Encounter Date Encounter Id Patient Instructions Last Modified By Organization Details Last Modified Time 11/02/2024 [id number] 1. Recommended i n lab sleep study 2. F/U W/Results [email or web address] Not available 11/02/2024 11:27:35 We discussed options for sleep apnea including diet and lifestyle changes/weight loss, oral appliances, CPAP, and surgery. We discussed that oral appliances are typically more effective for mild to moderate sleep apnea and the risks of dental issues/TMJ associated with them. We discussed that CPAP is the gold standard of treatment for JEWEL. We discussed with surgical procedure's patient would potentially be a candidate for based of their PSG, BMI, and anatomy. I independently reviewed and evaluated patient's sleep study. Mild sleep apnea, not a candidate for inspire based off degree of apnea. She is very interested in the surgery. Discussed having her do an in lab sleep study to verify the accuracy of the home results, will place referral to see sleep medicine. She prefers to potentially do this in [place] if possible [email or web address] Not available 11/02/2024 12:28:42 Reason for Referral None Reported. Procedures Surgical History Date Name Laterality Status Provider Name and Address Organization Details Recorded Time 4 special ENT procedures completed Melissa Prabhakar [facility] 11/02/2024 11:22:24 Imaging Results None recorded. Procedure Notes None recorded. Medical Equipment None Reported. Allergies Allergen ID Allergen Name Allergen Category Reaction Reaction Severity Criticality Documentation Date Start Date Code Code System Note Provider Name and Address Organization Details Recorded Time [id number] Biaxin medicatio n Not available Not available Not available 11/02/202411203 9 [facility] 11:16:56 Medications Name Sig Start Date Stop Date Status Note LastModified by Organization Details LastModified Time prednisone 10 mg tablet 11/02 completed Not Available Not Available Not Available atorvastatin 10 mg tablet active Not Available Not Available No t Available azithromycin 250 mg tablet 11/02 completed Not Available Not Available Not Available fluconazole 150 mg tablet 11/02 completed Not Available Not Available Not Available omeprazole 40 mg capsule,delayed release active Not Available Not Available Not Available prednisone 50 mg tablet 11/02 completed Not Available Not Available Not Available progesterone micronized 200 mg capsule active Not Available Not Available N ot Available methylprednisolo ne 4 mg tablets in a dose pack 11/02 completed Not Available Not Available Not Available amoxicillin 500 mg-potassium clavulanate 125 mg tablet 11/02 completed Not Available Not Available Not Available escitalopram 10 mg tablet active Not Available Not Available No t Available [employer] Thyroid 60 mg tablet active Not Available Not Available Not Available Vitals Date Recorded Body height Body mass index (BMI) Body weight Body temperature Heart rate Respiratory rate Oxygen saturation Oxygen saturation in Arterial blood by Pulse oximetry Systolic blood pressure Diastolic blood pressure Provider Name and Address Organization Details Last Updated DateTime 4 175.26 cm 25.4 kg/m2 70654.2 9 g 99.1 [degF] 78 /min 16 /min 98 % 98 % 107 mm[Hg] 66 mm[Hg] Chester Casarez [facility] 11:16:39 Social History None recorded. Functional Status None recorded. Mental Status None recorded. Family History Nothing Reported. Medical History Condition Response Kidney Stones N Hyperthyroidism Y Heart Arrhythmia N Emphysema N Esophagus/swallowing troubles Y Glaucoma N Lung Disease N Depression Y Hypothyroidism N Anesthesia Complications N Anxiety Disorder Y Arthritis N Hearing Loss N Acid Reflux (GERD) N Cancer N Stroke N Hoarseness N Alcohol Overuse/Alcohol Abuse N High Cholesterol Y Liver Disease N Snoring problems Y Headaches N Kidney Disease N Allergies/Hayfever Y Heart Problems N Mental handicap N Ear or Hearing Problems N Gallbladder Disease N Migraines N Thyroid Problems Y Goiter N Anemia N Immune System Disorder N Chest Pain N Stomach trouble N Heart Attack (ND) N Ulcers N Diabetes N Rheumatic Fever N Bleeding Disorder N Tuberculosis N AIDS/HIV N Hyperlipidemia N Asthma N Epilepsy/Seizures N Sleep Disorder Y Hepatitis N Heart Disease N Hypertension N Gynecological HistoryNo gynecological history recorded. Obstetrics History GPAL:G 0 P 0 0 0 0 Past Encounters Encounter ID Performer Location Encounter Start Date Encounter Closed Date Diagnosis/Indication Diagnosis SNOMED-CT Code Diagnosis ICD10 Code Diagnosis Note [id number] MD [facility] [address] [place] [address] 11/02/2024 10:57:19 11/02/2024 11:33:12 Obstructive sleep apnea syndrome 84126097 G47.33 Insurance: [facility] Medicine Physician: PCPPSG Date: 0AHI Using 4% Rule:7.4Ce ntral/Mixe d Percentage : minimalBMI : 25.4DISE: {{pending* good candidate with no concentric palatal collapse < 50% circumfren tial palatal collapse < 75% circumfren tial palatal collapse}} Has tried and failed/ret urned/does not wear anymore CPAP due to {{claustro phobia dylan ps awake at night* won 't stay on skin irritation infective anxiety m ask leaks}}{{c laustropho babar keeps awake at night won' t stay on* skin irritation infective anxiety m ask leaks}}Pat ient {{has* has not}} tried an oral appliance. Health Concerns Section Related Observation LastModified by Organization Detai ls LastModified Time None Recorded Concern Status LastModified by Organization Details LastModified Time None Recorded Advance Directives Directive None Recorded Payers Encounter Date Sequence Insurance Name Policy Number Policy Blum Covered Member ID Blum Member ID Guarantor Name 11/02/2024 1 NESSA-CT: BRAEDEN SZYMANSKI OF [employer] BLUE ACCESS (PPO) [id number] 1 Dennis Amos [id number] Nilay Amos Notes Date Note Type Note Provider Name and Address Organization Details Recorded Time 11/02/2024 text/html Nilay comes in today for consultation at the request of Dr.Kenneth aCnchola for an evaluation of inspire.-Pt has had a sleep study 09/10-Pt has used CPAP several years with no resolution-Pt has used a mouth guard-Pt states that she feels like chokes when she used the CPAP Machine ANDREW STEWART MD [address] [place] [address], [phone], [facility] - [facility] 11/02/2024 12:28:52 OBGyn Episode No OBEpisode recorded.
--- OUTSIDE RECORDS SUMMARY | 2025-03-17 09:57 | XMS_ITS ---
Author Organization [facility] , [facility] Address [address] [place] [address] Phone Care Team Providers Care Chemical Compounder Name Role Phone Robson WISDOM, Celio Cerda Unavailable [phone] Constanza Cannon PA-C Unavailable [phone] Problems Includes: Active, inactive, and resolved Problems All Visits Onset Date Resolved Date Provider Condition S tatus Joint Pain in the Right Knee 05/05/2024 Shikha Solano PA-C Active Last Documented On 4 8:57AM ; [facility] Joint Pain in the Left Wrist 03/22/2021 Celio Chance MD Active Last Documented On 1 3:14PM ; [facility] Joint Pain, Localized in the Left Shoulder 03/22/2021 Celio Chance MD Active Last Documented On 1 8:09AM ; [facility] Plan of Treatment Pending Tests Order Diagnosis Results Due Ordering P rovijonny Radiology - MRI MRI Shoulder 06/19/21 Celio Chance MD Last Documented On 1 4:00PM ; [facility], [facility] Assessments Includes: Assessments for all patient encounters No Assessments Recorded Medical Equipment - Implanted Devices Includes: Current and historical Devices No Medical Equipment Recorded Medications Includes: Current and historical Medications Current Medications (continue as prescribed) Escitalopram Oxalate 10 MG Oral Tablet 12/14/2024 Pr ovider: Diagnosis: Last Documented On 5 9:25AM By Mitchell Mccormack ; [facility], [facility] Omeprazole 40 MG Oral Capsule Delayed Release 01/26/20 25 Provider: Diagnosis: Last Documented On 5 9:25AM By Mitchell Mccormack ; [facility], [facility] Atorvastatin Calcium 10 MG Oral Tablet 12/01/2024 Pr ovider: Diagnosis: Last Documented On 5 9:25AM By Mitchell Mccormack ; [facility], [facility] Omeprazole 40 MG Oral Capsule Delayed Release 09/24/20 Provider: Diagnosis: Last Documented On 5 9:25AM By Mitchell Mccormack ; [facility], [facility] Fluconazole 150 MG Oral Tablet 07/22/2024 Provider: Diagnosis: Last Documented On 5 9:25AM By Mitchell Mccormack ; [facility], [facility] Past Medications on file 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 MG Oral Tablet 04/01/2024 - 01/20/2025 P rovider: Diagnosis: Last Documented On 5 9:24AM By Mitchell Mccormack ; [facility], [facility] Atorvastatin Calcium 10 MG Oral Tablet 03/30/2024 - Provider: Diagnosis: Last Documented On 5 9:24AM By Mitchell Mccormack ; [facility], [facility] Escitalopram Oxalate 10 MG Oral Tablet 03/23/2024 - Provider: Diagnosis: Last Documented On 5 9:24AM By Mitchell Mccormack ; [facility], [facility] Omeprazole 40 MG Oral Capsul e Delayed Release 03/09/2024 - 01/20/2025 Provider: MARLEEN Machuca MD Diagnosis: Last Documented On 5 9:24AM By Mitchell Mccormack ; [facility], [facility] Percocet 5-325 MG Oral Tablet 10/06/2021 - 10/21/2021 Provider: Celio Chance MD Diagnosis: 1 po q 4h prn pain Last Documented On 12:54PM By Celio Chance ; [facility], [facility] Lexapro 10 MG Oral Tablet 03/22/2021 - 01/20/2025 Prov ider: Diagnosis: Last Documented On 5 9:24AM By Mitchell Mccormack ; [facility], [facility] Lipitor 10 MG Oral Tablet 03/22/2021 - 01/20/2025 Prov ider: Diagnosis: Last Documented On 9:24AM By Mitchell Mccormack ; [facility], [facility] Medications Administered Includes: Administered Medications in patient's chart No Administered Medications Recorded Vital Signs Includes: Vital Signs from 03/17/2024 through 03/17/2025 Vital Name 02/03/2025 01:45P 01/27/2025 08:41A 01/20/2025 09:30A 01/15/2025 03:26P 01/06/2025 08:49A Height (in) 69 69 69 69 69 Weight (lb) 157 162 162 162 Body Mass Index 23.2 23.9 23.9 23.9 Body Surface Area 1.9 1.9 1.9 1.9 Note: jeni gracia cd mgg Last Documented: On 02/03/2025 1:45PM ; [facility] On 01/27/2025 8:41AM ; [facility] On 01/20/2025 9:30AM ; [facility] On 01/15/2025 3:27PM ; [facility] On 01/06/2025 8:49AM ; [facility], [facility] Vital Name 12/30/2024 08:49A 12/23/2024 10:53A 12/08/2024 09:11A 09/21/2024 07:59A 05/05/2024 08:57A Height (in) 69 69 69 69 69 Weight (lb) 159 159 159 159 159 Body Mass Index 23.5 23.5 23.5 23.5 23.5 Body Surface Area 1.9 1.9 1.9 1.9 1.9 Pain Level 5 Note: clw hj hj bdf Last Documented: On 12/30/2024 8:50AM ; [facility] On 12/23/2024 10:54AM ; [facility] On 12/08/2024 9:11AM ; [facility] On 09/21/2024 7:59AM ; [facility] On 05/05/2024 8:58AM ; [facility], [facility] Results Includes: Results from 03/17/2024 through 03/17/2025 No Results Recorded For Specified Dates History of Present Illness History of Present Illness not supported for this document type No History of Present Illness Recorded Social History Description Last Updated Caffeine use 05/05/2024 Last Documented On 4 3:41PM ; [facility], [facility] Exercising regularly 05/05/2024 Last Documented On 4 3:41PM ; [facility], [facility] No recent change in diet 05/05/2024 Last Documented On 4 3:41PM ; [facility], [facility] Not a current smoker. 05/05/2024 Last Documented On 4 3:41PM ; [facility], [facility] Not using alcohol 05/05/2024 Last Documented On 4 3:41PM ; [facility], [facility] Not using drugs 05/05/2024 Last Documented On 4 3:41PM ; [facility], [facility] No recent change in diet 06/05/2021 Last Documented On 1 4:00PM ; [facility], [facility] Not a current smoker. 06/05/2021 Last Documented On 1 4:00PM ; [facility], [facility] Non-smoker 06/05/2021 Last Documented On 1 4:00PM ; [facility], [facility] Smoking Status Unknown Procedures and Surgical History Includes: Procedures from 03/17/2024 through 03/17/2025 Procedures Code Diagnosis Performing Provider Service Location Service Date Cheikh Rodriguez, 2cc (LEFT) J7324 Unilateral primary osteoarthritis, left knee Shikha Solano PA-C [facility] 02/03/2025 Last Documented On 5 1:05PM ; [facility], [facility] DRAIN/INJECT, JOINT/BURSA (LEFT) Unilateral primary osteoarthritis, left knee Shikha Solano PA-C [facility] 02/03/2025 Last Documented On 5 1:05PM ; [facility], [facility] Orthovisc Jennifer, 2cc (LEFT) J7324 Unilateral primary osteoarthritis, left knee Shikha Solano PA-C [facility] 01/27/2025 Last Documented On 5 12:39PM ; [facility], [facility] DRAIN/INJECT, JOINT/BURSA (LEFT) Unilateral primary osteoarthritis, left knee Shikha Solano PA-C [facility] 01/27/2025 Last Documented On 5 12:39PM ; [facility], [facility] DRAIN/INJECT, JOINT/BURSA (LEFT) Unilateral primary osteoarthritis, left knee Shikha Solano PA-C [facility] 01/20/2025 Last Documented On 5 9:48AM ; [facility] Orthovisc [place], 2cc (LEFT) J7324 Unilateral primary osteoarthritis, right knee Shikha Solano PA-C [facility] 01/20/2025 Last Documented On 5 3:31PM ; [facility], [facility] DRAIN/INJECT, JOINT/BURSA (Bilateral Procedure) Bilateral primary osteoarthritis of knee Shikha Solano PA-C [facility] 01/15/2025 Last Documented On 5 3:10PM ; [facility] Orthovisc [place], 2cc (LEFT) J7324 Unilateral primary osteoarthritis, left knee Shikha Solano PA-C [facility] 01/15/2025 Last Documented On 5 3:10PM ; [facility] Orthovisc [place], 2cc (RIGHT) J7324 Unilateral primary osteoarthritis, right knee Shikha Solano PA-C [facility] 01/15/2025 Last Documented On 5 3:10PM ; [facility] Orthovisc [place], 2cc (RIGHT) J7324 Unilateral primary osteoarthritis, right knee Shikha Solano PA-C [facility] 01/06/2025 Last Documented On 5 11:07AM ; [facility], [facility] DRAIN/INJECT, JOINT/BURSA (RIGHT) Unilateral primary osteoarthritis, right knee Shikha Solano PA-C [facility] 01/06/2025 Last Documented On 5 11:07AM ; [facility], [facility] MRI JNT OF LWR EXTRE W/O DYE (LEFT) 48812 Pain in left knee Stephen Garcia MD [facility] [place] 01/01/2025 Last Documented On 5 8:36AM ; [facility] DRAIN/INJECT, JOINT/BURSA (RIGHT) Unilateral primary osteoarthritis, right knee Shikha Solano PA-C [facility] 12/30/2024 Last Documented On 5 12:46PM ; [facility], [facility] Orthovisc [place], 2cc (RIGHT) J7324 Unilateral primary osteoarthritis, right knee Shikha Solano PA-C [facility] 12/30/2024 Last Documented On 5 12:46PM ; [facility] DRAIN/INJECT, JOINT/BURSA (RIGHT) Unilateral primary osteoarthritis, right knee Shikha Solano PA-C [facility] 12/23/2024 Last Documented On 5 10:32AM ; [facility], [facility] Orthovisc [place], 2cc (RIGHT) J7324 Unilateral primary osteoarthritis, right knee Shikha Solano PA-C [facility] 12/23/2024 Last Documented On 5 10:32AM ; [facility], [facility] X-RAY EXAM OF KNEE 3 VIEWS (LEFT) 39909 Pain in left knee Shikha Solano PA-C [facility] 12/08/2024 Last Documented On 5 1:26PM ; [facility], [facility] Injection, betamethasone acetate 6mg per cc and betamethason J0702 Pain in left knee Shikha Solano PA-C [facility] 12/08/2024 Last Documented On 5 1:26PM ; [facility] DRAIN/INJECT, JOINT/BURSA (LEFT) Pain in left knee Shikha Solano PA-C [facility] 12/08/2024 Last Documented On 5 1:26PM ; [facility] Injection, betamethasone acetate 6mg per cc and betamethason J0702 Unilateral primary osteoarthritis, right knee Shikha Solano PA-C [facility] 09/21/2024 Last Documented On 4 1:55PM ; [facility] DRAIN/INJECT, JOINT/BURSA (RIGHT) Unilateral primary osteoarthritis, right knee Shikha Solano PA-C [facility] 09/21/2024 Last Documented On 4 1:55PM ; [facility] Injection, betamethasone acetate 6mg per cc and betamethason J0702 Unilateral primary osteoarthritis, right knee Shkiha Solano PA-C [facility] 05/05/2024 Last Documented On 4 3:18PM ; [facility] X-RAY EXAM OF KNEE 1 OR 2 VIEWS (RIGHT) [id number] Unilateral primary osteoarthritis, right knee Shikha Solano PA-C [facility] 05/05/2024 Last Documented On 4 3:18PM ; [facility] DRAIN/INJECT, JOINT/BURSA (RIGHT) Unilateral primary osteoarthritis, right knee Shikha Solano PA-C [facility] 05/05/2024 Last Documented On 4 3:18PM ; [facility] Medical History Includes: Medical History in patient's chart Description Last Updated Past surgical history non-contributory 0 05/05/2024 Last Documented On 4 3:41PM ; [facility] History of Thyroid Disease 05/05/2024 Last Documented On 4 3:41PM ; [facility] History of depression 06/05/2021 Last Documented On 1 4:00PM ; [facility] No recent immunization for flu 1 Last Documented On 1 4:00PM ; [facility] No recent immunization for pneumococcal pneumonia 06/05/2021 Last Documented On 1 4:00PM ; [facility] Family History Includes: Family History in patient's chart Description Last Updated Family history of cancer 05/05/2024 Last Documented On 4 3:41PM ; [facility] Family history of heart disease 05/05/20 Last Documented On 4 3:41PM ; [facility] Review of Systems Review of Systems not supported for this document type No Review of Systems Recorded Mental Status Description Anxiety Functional Status No Functional Status Recorded Physical Exam Physical Exam not supported for this document type No Physical Exam Recorded Allergies Includes: Active, inactive, and resolved Allergies Substance Type Reaction Onset Date Resolved Date Statu s Biaxin Allergy 05/05/2024 Active Last Documented On 5 1:44PM ; [facility] Encounters Includes: Encounters from 03/17/2024 through 03/17/2025 Encounter Provider Location Date Check-In Time Check-Out Time Diagnosis [facility] Injection Shikha Solano PA-C [facility] 02/04/20 25 1:43PM 2:24PM [facility] Injection Shikha Solano PA-C [facility] 01/28/20 25 8:20AM 8:48AM [facility] Injection Shikha Solano PA-C [facility] 01/21/20 25 9:24AM 9:42AM [facility] Injection Shikha Solano PA-C [facility] 01/15/20 25 3:22PM 4:13PM [facility] Injection Shikha Solano PA-C [facility] 01/06/20 25 8:43AM 9:10AM MRI [facility] 01/01/20 25 11:16AM 11:56AM [facility] Injection Shikha Solano PA-C [facility] 12/30/19 25 8:45AM 9:04AM [facility] Injection Shikha Solano PA-C [facility] 12/23/19 25 10:24AM 11:16AM Follow Up Shikha Solano PA-C [facility] 12/08/19 25 9:10AM 10:01AM Follow Up Shikha Solano PA-C [facility] 09/21/20 24 8:02AM 8:37AM Physician Specified Shikha Solano PA-C [facility] 05/05/20 24 8:25AM 9:16AM Insurance Includes: Active Insurance Policies Plan Name Member ID Group # Subscriber Relationship Effect paris Dates 1 - [facility] [id number] Bette, Petrosreg 11/18/2020 - Unknown Clinical Notes Includes: Signed Clinical Notes starting from 11/01/2022 * Progress note Date Encounter Last Documented by 02/03/2025 Specialty Pharmacy [facility] Injection Last documented on 02/03/2025; 4:26 PM, Shikha Solano PA-C; [facility], [facility] Active Problems & Conditions - Joint Pain in the Left Wrist - Joint Pain in the Right Knee - Joint Pain, Localized in the Left Shoulder Chief Complaint The Chief Complaint is: Paulo knee painThe Chief Complaint is: Right knee [...] here today for orthovisc injection #4 of left knee. Review of systems: All [...] See previous Imaging: Previous imaging obtained THERAPY Left Knee: The risks of the procedure [...] Patient was given Orthovisc injection 4 of left knee. She will return as needed at this time. Current Medication - Atorvastatin Calcium 10 MG Oral Tablet 90 days, 0 refills - Escitalopram Oxalate 10 MG Oral Tablet 90 days, 0 refills - Fluconazole 150 MG Oral Tablet 1 days, 0 refills - Omeprazole 40 MG Oral Capsule Delayed Release 90 days, 0 refills - Omeprazole 40 MG Oral Capsule Delayed Release 90 days, 0 refills Allergies - Biaxin Review Of Systems Systemic: Not feeling tired, [...] allergic reaction. Physical Findings - Vitals taken 02/03/2025 01:45 pm jaa Height 69 in Counseling/Education - Tobacco non-user - Use of tobacco assessment performed Notes This dictation was done with voice recognition software and may contain errors and omissions. Care Team - Constanza Cannon PA-C Health Reminders - Assess Tobacco Use satisfied 02/03/2025. * Progress note Date Encounter Last Documented by 01/27/2025 Specialty Pharmacy [facility] Injection Last documented on 01/27/2025; 9:08 AM, Shikha Solano PA-C; [facility] Active Problems & Conditions - Joint Pain in the Left Wrist - Joint Pain in the Right Knee - Joint Pain, Localized in the Left Shoulder Chief Complaint The Chief Complaint is: Paulo knee painThe Chief Complaint is: Right knee [...] documented Patient here today for orthovisc injection #3 of left knee. Review of systems: All [...] See previous Imaging: Previous imaging obtained THERAPY Left Knee: The risks of the procedure [...] injections Plan: Patient was given Orthovisc injection 3 of left knee. She will return next week for repeat injection of the left knee. Current Medication - Atorvastatin Calcium 10 MG Oral Tablet 90 days, 0 refills - Escitalopram Oxalate 10 MG Oral Tablet 90 days, 0 refills - Fluconazole 150 MG Oral Tablet 1 days, 0 refills - Omeprazole 40 MG Oral Capsule Delayed Release 90 days, 0 refills - Omeprazole 40 MG [...] allergic reaction. Physical Findings - Vitals taken 01/27/2025 08:41 am cd Height 69 in Weight 157 lbs Body Mass Index 23.2 kg/m2 Body Surface Area 1.9 m2 Counseling/Education [...] PA-C Health Reminders - Assess BMI satisfied 01/27/2025. - Assess Tobacco Use satisfied 01/27/2025. * Progress note Date Encounter Last Documented by 01/20/2025 Specialty Pharmacy [facility] Injection Last documented on 01/20/2025; 9:43 AM, Shikha Solano PA-C; [facility] Active Problems & Conditions - Joint Pain in the Left Wrist - Joint Pain in the Right Knee - Joint Pain, Localized in the Left Shoulder Chief Complaint The Chief Complaint is: Paulo knee painThe Chief Complaint is: Right knee [...] documented Patient here today for orthovisc injection #2 of left knee. Review of systems: All [...] See previous Imaging: Previous imaging obtained THERAPY Left Knee: The risks of the procedure [...] injections Plan: Patient was given Orthovisc injection 1 of left knee. She will return next week for repeat injection of the left knee. Current Medication - Atorvastatin Calcium 10 MG Oral Tablet 90 days, 0 refills - Escitalopram Oxalate 10 MG Oral Tablet 90 days, 0 refills - Fluconazole 150 MG Oral Tablet 1 days, 0 refills - Omeprazole 40 MG Oral Capsule Delayed Release 90 days, 0 refills - Omeprazole 40 MG [...] allergic reaction. Physical Findings - Vitals taken 01/20/2025 09:30 am cd Height 69 in Weight 162 lbs Body [...] PA-C Health Reminders - Assess BMI satisfied 01/20/2025. - Assess Tobacco Use satisfied 01/20/2025. 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 - Assess Tobacco Use satisfied 01/15/2025. * Progress note Date Encounter Last Documented by 01/06/2025 [facility]ty Pharmacy [facility] In[facility] Last documented on 01/06/2025; 9:09 AM, Shikha Solano PA-C; [facility] Active Problems & Conditions - Joint Pain in the Left Wrist - Joint Pain in the Right Knee - Joint Pain, Localized in the Left Shoulder Chief Complaint The Chief Complaint is: Right knee pain. Referred [...] documented Patient here today for orthovisc injection #3 of right knee. We are also following up on MRI of the left knee. She does feel like the knee pain has gotten a bit better. Most of the left knee pain is over the medial aspect. Review of systems: All systems within normal [...] devices. Station normal. 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 We discussed findings of the MRI of the right knee. She does have a medial meniscus tear but most of her symptoms are pain with aching and throbbing more consistent with her underlying osteoarthritis. Discussed treatment options moving forward including repeat steroid injections, [facility] injections, total knee arthroplasty. She would like to continue with more conservative treatment. She has gotten some relief from the [facility] injections of her right knee so we will seek approval for [facility] injections of her left knee as well. 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 Physical Findings - Vitals taken 01/06/2025 08:49 am AH Height 69 in Weight 162 lbs Body [...] PA-C Health Reminders - Assess BMI satisfied 01/06/2025. - Assess Tobacco Use satisfied 01/06/2025. * Progress note Date Encounter Last Documented by 12/30/2024 Specialty Pharmacy [facility] Last documented on 12/30/2024; 9:04 AM, Shikha Solano PA-C; [facility] Active Problems & Conditions - Joint Pain in the Left Wrist - Joint Pain in the Right Knee - Joint Pain, Localized in the Left Shoulder Chief Complaint The Chief Complaint is: Right knee pain. Referred [...] documented Patient here today for orthovisc injection #2 of right knee. Review of systems: All systems within [...] tolerated procedure well. Assessment: Right Knee OA PAST TREATMENT: Patient has failed all conservative measures including the following: Ice, anti inflammatory medication, physical therapy, steroid injections Plan: Patient was given orthovisc injection #2 of series of right knee. She will return in 1 week for repeat injection. 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 Physical Findings - Vitals taken 12/30/2024 08:49 am AH Height 69 in Weight 159 lbs Body Mass Index 23.5 kg/m2 Body Surface Area 1.9 m2 Counseling/Education - Tobacco non-user - Use of tobacco assessment performed Notes This dictation was done with voice recognition software and may contain errors and omissions. This dictation was done with voice recognition software and may contain errors and omissions. Care Team - Constanza Cannon PA-C Health Reminders - Assess BMI satisfied 12/30/2024. - Assess Tobacco Use satisfied 12/30/2024. * Progress note Date Encounter Last Documented by 12/23/2024 Specialty Pharmacy [facility] Injection Last documented on 12/23/2024; 11:22 AM, Shikha Solano PA-C; [facility], [facility] Active Problems & Conditions - Joint Pain in the Left Wrist - Joint Pain in the Right Knee - Joint Pain, Localized in the Left Shoulder Chief Complaint The Chief Complaint is: Right knee pain. Referred [...] documented Patient here today for orthovisc injection #1 of right knee. She does also still complain of left knee pain that was evaluated on 12/08/24. She had an injection at that time that was not helpful. Review of systems: All systems within normal [...] gait without assistive devices. Station normal. Musculoskeletal: Right Knee: See previous Left Knee: Tenderness over medial joint line, positive medial Atul's test Imaging: Previous imaging obtained THERAPY Right Knee: [...] well. Assessment: Right Knee OA Left Knee Pain, Concern for Internal Derangement PAST TREATMENT: Patient has failed all conservative measures including the following: Ice, anti inflammatory medication, physical therapy, steroid injections Plan: Patient was given orthovisc injection #1 of series of right knee. She is still having pain in her left knee despite conservative treatment with rest, ice, elevation, anti-inflammatories and steroid injection. She does have pain with medial meniscus testing and tenderness over the medial joint line. There could be underlying internal derangement such as meniscus tear. Believe MRI is warranted for further evaluation. We will order MRI of the left knee and see her in follow up after MRI is complete. 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 Physical Findings - Vitals taken 12/23/2024 10:53 am clw Height 69 in Weight 159 lbs Body Mass Index 23.5 kg/m2 Body Surface Area 1.9 m2 Pain Level 5 Counseling/Education - Tobacco non-user - Use of tobacco assessment performed Notes This dictation was done with voice recognition software and may contain errors and omissions. Care Team - Constanza Cannon PA-C Health Reminders - Assess BMI satisfied 12/23/2024. - Assess Tobacco Use satisfied 12/23/2024. * Progress note Date Encounter Last Documented by 12/08/2024 Follow Up Last documented on 12/08/2024; 1:02 PM, Shikha Solano PA-C; [facility], [facility] Active Problems & Conditions - Joint Pain in the Left Wrist - Joint Pain in the Right Knee - Joint Pain, Localized in the Left Shoulder Chief Complaint The Chief Complaint is: Right knee pain. Referred Here Referred by pcp. History of Present Illness Nilay Gates is a 59 year old female. - Allergy list reviewed - Problem list reviewed - Medication list reviewed - Previous history of new onset pain 04/28/2024 - Pain is occasional (25% of the time) - Patient pain level from 1-10: 5 - Yes, previous treatment. - - Review of medications documented Patient is a 59-year-old female presenting today for evaluation of left knee pain. Patient has known history of osteoarthritis of the right knee and has been receiving injections. We had discussed HERNANDEZ injections at her last visit but she never heard back for any follow up regarding this. She states that more recently she has had some pain in her left knee. She has been doing more exercises recently but does not recall a specific injury. She states it feels tight and swollen. Denies any specific locking or catching. Most of the pain is over the medial aspect of the knee. Denies any pain in the hip or groin. Denies any paresthesias of the extremity. Review of systems: All systems within normal [...] gait without assistive devices. Station normal. Musculoskeletal: Left Knee: No deformity. No discoloration. No atrophy. Tenderness to palpation over medial joint line. No crepitus. Trace to moderate effusion. Active range of motion: Extension 0-, flexion 130-. Passive range of motion: Not limited. She can hold straight leg raise. Negative anterior drawer. Negative posterior drawer. Negative valgus instability. Negative varus instability. Negative medial Atul's. Negative lateral Atul's. IMAGING Lateral view of the left knee obtained and reviewed by me today revealing suspected patella perez, no definite acute fracture, there is some narrowing over the medial joint line. Previous AP view of the left knee obtained and reviewed THERAPY Left Knee: The risks of the procedure were explained and verbally knowledge by the patient. Verbal consent was obtained. The knee was prepped with Betadine and/or alcohol. The knee was then put in a flexed position in the intercondylar notch was palpated. With ethyl chloride spray used as topical anesthesia at the site of injection, the needle was gently introduced toward interchondral notch to get entering into the synovial cavity. Upon entering into the synovial cavity, 1 cc of Celestone and 4 cc of lidocaine was injected. The needle was carefully withdrawn and a Band-Aid was applied. The knee was then placed through a range of motion. PAST TREATMENT: Patient has failed all conservative measures including the following: Ice, anti inflammatory medication, physical therapy, steroid injections, and topical creams Plan: Discussed findings and reviewed imaging with the patient. She may have some underlying inflammation of the left knee versus possible meniscus tear. She can hold straight leg raise, overall exam is stable today. Discussed treatment options moving forward. She was agreeable to steroid injection today to help with the acute pain and inflammation. We will check her back in 2-3 weeks to re-evaluate. If symptoms persist may need further imaging of her left knee with MRI. We will try to go ahead and seek approval for the HERNANDEZ injections of her right knee as well. 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 Physical Findings - Vitals taken 12/08/2024 09:11 am hj Height 69 in Weight 159 lbs Body Mass Index 23.5 kg/m2 Body Surface Area 1.9 m2 Counseling/Education - Tobacco non-user - Use of tobacco assessment performed Notes This dictation was done with voice recognition software and may contain errors and omissions. Care Team - Constanza Cannon PA-C * Progress note Date Encounter Last Documented by 09/21/2024 Follow Up Last documented on 09/21/2024; 8:35 Shikha HARRELL PA-C; [facility], [facility] Active Problems & Conditions - Joint Pain in the Left Wrist - Joint Pain in the Right Knee - Joint Pain, Localized in the Left Shoulder Chief Complaint The Chief Complaint is: Right knee pain. Referred Here Referred by pcp. History of Present Illness Nilay Gates is a 59 year old female. - Allergy list reviewed - Problem list reviewed - Medication list reviewed - Previous history of new onset pain 04/28/2024 - Pain is occasional (25% of the time) - Patient pain level from 1-10: 5 - Yes, previous treatment. - - Review of medications documented Patient is a 58-year-old female presenting today for follow up of right knee pain. She had a steroid injection at her last visit which did provide relief. She has noticed over the last 4 weeks that her knee is swelling again and starts feeling very stiff. She denies any feelings of instability. She does take NSAIDs as needed. She does do home PT exercises that she learned from her previous PT sessions. She states recently the pain has been so bad she has just had to rest. Review of systems: All systems within normal limits with exception of musculoskeletal. The patient's medications, medication allergies, Past Medical [...] gait without assistive devices. Station normal. Musculoskeletal: Right Knee: No deformity. No discoloration. No atrophy. Tenderness to palpation over lateral joint line. Trace effusion. Active range of motion: Extension 0-, flexion 135-. Passive range of motion: Not limited. Negative anterior drawer. Negative posterior drawer. Negative valgus instability. Negative varus instability. Negative medial Atul's. Negative lateral Atul's. Imaging: Previous radiographs obtained THERAPY Right Knee Injection: The risks of the procedure were explained and verbally knowledge by the patient. Verbal consent was obtained. The knee was prepped with Betadine and/or alcohol. The knee was then put in a flexed position in the intercondylar notch was palpated. With ethyl chloride spray used as topical anesthesia at the site of injection, the needle was gently introduced toward interchondral notch to get entering into the synovial cavity. Upon entering into the synovial cavity, 1 cc of Celestone and 4 cc of lidocaine was injected. The needle was carefully withdrawn and a Band-Aid was applied. The knee was then placed through a range of motion. PREVIOUS THERAPY: Ice, home physical therapy exercises, anti-inflammatories, steroid injection Assessment: Right Knee OA Plan: Patient did get relief from the steroid injection. We will repeat injection today. We did discuss HERNANDEZ injections. She would like to try to avoid surgery as long as possible. We will try to seek approval for HERNANDEZ injections to hopefully give her longer periods of relief. She will continue home PT exercises, ice and anti-inflammatories as needed. She will follow up after HERNANDEZ injections are approved. 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 Physical Findings - Vitals taken 09/21/2024 07:59 am hj Height 69 in Weight 159 lbs Body Mass Index 23.5 kg/m2 Body Surface Area 1.9 m2 Counseling/Education - Tobacco non-user - Use of tobacco assessment performed Notes This dictation was done with voice recognition software and may contain errors and omissions. Care Team - Constanza Cannon PA-C * Progress note Date Encounter Last Documented by 05/05/2024 Physician Specified Last mohan mustafa on 05/05/2024; 3:41 PM, Shikha Solano PA-C; [facility], [facility] Active Problems & Conditions - Joint Pain in the Left Wrist - Joint Pain in the Right Knee - Joint Pain, Localized in the Left Shoulder Chief Complaint The Chief Complaint is: Right knee pain. Referred Here Referred by pcp. History of Present Illness Nilay Gates is a 58 year old female. - Allergy list reviewed - Problem list reviewed - Medication list reviewed - Previous history of new onset pain 04/28/2024 - Pain is occasional (25% of the time) - Patient pain level from 1-10: 5 - Yes, previous treatment. - - Review of medications documented Patient is a 58-year-old female presenting today for evaluation of right knee pain. She reports that she walks multiple miles per day and is very active. This past Saturday after walking she noticed pain and swelling of her right knee. Denies any known injury. She was seen by her primary care provider and was told that she likely had fluid on her knee and they recommended her following up with orthopedics. Pain was located more on the lateral aspect of the knee described as throbbing. She states that the swelling and pain have improved over the past few days, she has been trying to rest her knee. She reports having her meniscus repaired in her right knee in 2019, thinks she may have had injections previous to surgery but not since then. She denies any pain in her groin, hip, calf, ankle. She denies any paresthesias of the extremity. Review of systems: All systems within normal limits with exception of musculoskeletal. The patient's medications, medication allergies, Past Medical [...] gait without assistive devices. Station normal. Musculoskeletal: Right Knee: No deformity. No discoloration. No atrophy. Tenderness to palpation over lateral joint line. Trace effusion. Active range of motion: Extension 0-, flexion 135-. Passive range of motion: Not limited. Negative anterior drawer. Negative posterior drawer. Negative valgus instability. Negative varus instability. Negative medial Atul's. Negative lateral Atul's. Imaging: Two-view radiographs of right knee obtained and reviewed by me revealing [id number] osteoarthritic changes with narrowing over the lateral medial joint line, osteophyte formation. No acute fracture or dislocation noted. THERAPY Right Knee Injection: The risks of the procedure were explained and verbally knowledge by the patient. Verbal consent was obtained. The knee was prepped with Betadine and/or alcohol. The knee was then put in a flexed position in the intercondylar notch was palpated. With ethyl chloride spray used as topical anesthesia at the site of injection, the needle was gently introduced toward interchondral notch to get entering into the synovial cavity. Upon entering into the synovial cavity, 1 cc of Celestone and 4 cc of lidocaine was injected. The needle was carefully withdrawn and a Band-Aid was applied. The knee was then placed through a range of motion. Assessment: Right Knee OA Plan: Discussed findings and reviewed imaging with the patient. There is trace effusion, osteoarthritic changes noted on x-ray. Discussed that this pain and swelling could be from her underlying arthritis given there was no known injury, knee is stable on exam overall today. Discussed treatment options moving forward. She was agreeable to steroid injection to the hip to help with swelling and pain. Discussed rest, ice, compression, elevation to help. We will schedule follow up in the next 2-3 weeks for re-evaluation. If pain does not improve, may consider HERNANDEZ injections. 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 Social History Not a current smoker. Current diet: No recent change in diet. Caffeine use: Caffeine use. Alcohol: Not using alcohol. Drug Use: Not [...] allergic reaction. Physical Findings - Vitals taken 05/05/2024 08:57 am bdf Height 69 in Weight 159 lbs Body Mass Index 23.5 kg/m2 Body Surface Area 1.9 m2 Counseling/Education - Tobacco non-user - Use of tobacco assessment performed Notes This dictation was done with voice recognition software and may contain errors and omissions. Care Team - Constanza Cannon PA-C
--- OUTSIDE RECORDS SUMMARY | 2025-03-17 09:57 | XMS_ITS | Clinical Summary ---
Author Organization [facility] , [facility] Address [address] [place] [address] Phone Care Team Providers Care Cartographic Aide Name Role Phone Robson WISDOM, Celio Cerda Unavailable [phone] Constanza Cannon PA-C Unavailable [phone] Reason for Visit and Chief Complaint The Chief Complaint is: right knee pain, The Chief Complaint is: victorino knee pain Problems Includes: Problems addressed during this encounter and other active Problems All Visits Onset Date Resolved Date Provider Condition S tatus Joint Pain in the Right Knee 05/05/2024 Shikha Solano PA-C Active Last Documented On 4 8:57AM ; [facility] Joint Pain in the Left Wrist 03/22/2021 Celio Chance MD Active Last Documented On 1 3:14PM ; [facility] Joint Pain, Localized in the Left Shoulder 03/22/2021 Celio Chance MD Active Last Documented On 1 8:09AM ; [facility] Plan of Treatment No Plan of Treatment Recorded Assessments Includes: Assessments from this encounter No Assessments Recorded Medical Equipment - Implanted Devices Includes: Current Devices No Medical Equipment Recorded Medications Includes: Medications discussed during this encounter and other current Medications Discontinued / Stopped on this date on 04/01/2024 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 Thyroid 60 MG Oral Tablet Provider: Diagnosis: Last Documented On 5 9:24AM By Mitchell [facility] Atorvastatin Calcium 10 MG Oral Tablet Pr ovider: Diagnosis: Last Documented On 5 9:24AM By Mitchell [facility], [facility] Escitalopram Oxalate 10 MG Oral Tablet Pr ovider: Diagnosis: Last Documented On 5 9:24AM By Mitchell Mccormack ; [facility] Omeprazole 40 MG Oral Capsul e Delayed Release Provider: MARLEEN STEWART II, MD Diagnosis: Last Documented On 5 9:24AM By Mitchell Mccormack ; [facility] Lexapro 10 MG Oral Tablet Provider: Diagnosis: Last Documented On 5 9:24AM By Mitchell Mccormack ; [facility] Lipitor 10 MG Oral Tablet Provider: Diagnosis: Last Documented On 5 9:24AM By Mitchell Mccormack ; [facility], [facility] Current Medications (continue as prescribed) Escitalopram Oxalate 10 MG Oral Tablet 12/14/2024 Pr ovider: Diagnosis: Last Documented On 5 9:25AM By Mitchell Mccormack ; [facility], [facility] Omeprazole 40 MG Oral Capsule Delayed Release 12/13/19 25 Provider: Diagnosis: Last Documented On 5 9:25AM By Mitchell Mccormack ; [facility], [facility] Atorvastatin Calcium 10 MG Oral Tablet 12/01/2024 Pr ovider: Diagnosis: Last Documented On 5 9:25AM By Mitchell Mccormack ; [facility], [facility] Omeprazole 40 MG Oral Capsule Delayed Release 09/24/20 24 Provider: Diagnosis: Last Documented On 5 9:25AM By Mitchell Mccormack ; [facility], [facility] Fluconazole 150 MG Oral Tablet 07/22/2024 Provider: Diagnosis: Last Documented On 5 9:25AM By Mitchell Mccormack ; [facility], [facility] Past Medications on file Percocet 5-325 MG Oral Tablet 10/06/2021 - 10/21/2021 Provider: Celio Chance MD Diagnosis: 1 po q 4h prn pain Last Documented On 12:54PM By Celio Chance ; [facility], [facility] Medications Administered Includes: Administered Medications from this encounter No Administered Medications Recorded Vital Signs Includes: Vital Signs from this encounter Vital Name 01/20/2025 09:30A Height (in) 69 Weight (lb) 162 Body Mass Index 23.9 Body Surface Area 1.9 Note: cd Last Documented: On 01/20/2025 9:30AM ; [facility], [facility] Results Includes: Results discussed during this encounter [...] Updated Caffeine use 05/05/2024 Last Documented On 5 9:25AM ; [facility], [facility] Exercising regularly 05/05/2024 Last Documented On 5 9:25AM ; [facility], [facility] No recent change in diet 05/05/2024 Last Documented On 5 9:25AM ; [facility], [facility] Not a current smoker. 05/05/2024 Last Documented On 5 9:25AM ; [facility], [facility] Not using alcohol 05/05/2024 Last Documented On 5 9:25AM ; [facility] Not using drugs 05/05/2024 Last Documented On 5 9:25AM ; [facility], [facility] No recent change in diet 06/05/2021 Last Documented On 5 9:25AM ; [facility], [facility] Not a current smoker. 06/05/2021 Last Documented On 5 9:25AM ; [facility], [facility] Non-smoker 06/05/2021 Last Documented On 5 9:25AM ; [facility] Smoking Status Unknown Procedures and Surgical History Includes: Procedures from this encounter Procedures Code Diagnosis Performing Provider Service Location Service Date DRAIN/INJECT, JOINT/BURSA (LEFT) Unilateral primary osteoarthritis, left knee Shikha Solano PA-C [facility] 01/20/2025 Last Documented On 5 9:48AM ; [facility] Orthovisc [place], 2cc (LEFT) [id number] Unilateral primary osteoarthritis, right knee Shikha Solano PA-C [facility] 01/20/2025 Last Documented On 5 3:31PM ; [facility], [facility] Medical History Includes: Medical History addressed during this encounter Description Last Updated Past surgical history non-contributory 0 05/05/2024 Last Documented On 5 9:25AM ; [facility] History of Thyroid Disease 05/05/2024 Last Documented On 5 9:25AM ; [facility] History of depression 06/05/2021 Last Documented On 5 9:25AM ; [facility] No recent immunization for flu Last Documented On 5 9:25AM ; [facility] No recent immunization for pneumococcal pneumonia 06/05/2021 Last Documented On 5 9:25AM ; [facility] Family History Includes: Family History addressed during this encounter Description Last Updated Family history of cancer 05/05/2024 Last Documented On 5 9:25AM ; [facility] Family history of heart disease 05/05/20 Last Documented On 5 9:25AM ; [facility] Review of Systems Includes: Review [...] Active Last Documented On 5 1:44PM ; [facility], [facility] Encounters Encounter Provider Location Date Check-In Time Check-Out Time Diagnosis [facility] Injection Shikha Solano PA-C [facility] 01/21/20 25 9:24AM 9:42AM Insurance Includes: Active Insurance Policies Plan Name Member ID Group # Subscriber Relationship Effect paris Dates 1 - [facility] [id number] Bette, Grreg 11/18/2020 - Unknown Clinical Notes Includes: Clinical Notes from this encounter * Progress note Date Encounter Last Documented by 01/20/2025 Specialty Pharmacy [facility] Injection Last documented on 01/20/2025; 9:43 AM, Shikha Solano PA-C; [facility], [facility] Active Problems & Conditions - Joint [...]
--- OUTSIDE RECORDS SUMMARY | 2025-03-17 09:57 | XMS_ITS | Clinical Summary ---
Author Organization [facility] , [facility] Address [address] [place] [address] Phone Care Team Providers Care Vacuum System Tester Name Role Phone Robson WISDOM, Celio Cerda Unavailable [phone] Constanza Cannon PA-C Unavailable [phone] Reason for Visit and Chief Complaint The Chief Complaint is: right knee pain, The Chief Complaint is: victorino knee pain Problems Includes: Problems addressed during this encounter and other active Problems All Visits Onset Date Resolved Date Provider Condition S tatus Joint Pain in the Right Knee 05/05/2024 Shikha Solano PA-C Active Last Documented On 4 8:57AM ; [facility], [facility] Joint Pain in the Left Wrist 03/22/2021 Celio Chance MD Active Last Documented On 1 3:14PM ; [facility], [facility] Joint Pain, Localized in the Left Shoulder 03/22/2021 Celio Chance MD Active Last Documented On 1 8:09AM ; [facility], [facility] Plan of Treatment No Plan of Treatment [...] On 5 9:25AM By Mitchell Mccormack ; [facility], [facility] Omeprazole 40 MG Oral Capsule Delayed Release 12/13/19 Provider: Diagnosis: Last Documented On 5 9:25AM By Mitchell Mccormack ; [facility], [facility] Atorvastatin Calcium 10 MG Oral Tablet 12/01/2024 Pr ovider: Diagnosis: Last Documented On 5 9:25AM By Mitchell Mccormack ; [facility], [facility] Omeprazole 40 MG Oral Capsule Delayed Release 09/24/20 Provider: Diagnosis: Last Documented On 5 9:25AM By Mitchell Mccormack ; [facility], [facility] Fluconazole 150 MG Oral Tablet 07/22/2024 Provider: Diagnosis: Last Documented On 5 9:25AM By Mitchell Mccormack ; [facility], [facility] Past Medications on file Percocet 5-325 MG Oral Tablet 10/06/2021 - 10/21/2021 Provider: Celio Chance MD Diagnosis: 1 po q 4h prn pain Last Documented On 12:54PM By Celio Chance ; [facility] Medications Administered Includes: Administered Medications from this encounter No Administered Medications Recorded Vital Signs Includes: Vital Signs from this encounter Vital Name 01/27/2025 08:41A Height (in) 69 Weight (lb) 157 Body Mass Index 23.2 Body Surface Area 1.9 Note: cd Last Documented: On 01/27/2025 8:41AM ; [facility] Results Includes: Results discussed during this encounter [...] Caffeine use 05/05/2024 Last Documented On 5 8:21AM ; [facility], [facility] Exercising regularly 05/05/2024 Last Documented On 5 8:21AM ; [facility], [facility] No recent change in diet 05/05/2024 Last Documented On 5 8:21AM ; [facility] Not a current smoker. 05/05/2024 Last Documented On 5 8:21AM ; [facility], [facility] Not using alcohol 05/05/2024 Last Documented On 5 8:21AM ; [facility], [facility] Not using drugs 05/05/2024 Last Documented On 5 8:21AM ; [facility], [facility] No recent change in diet 06/05/2021 Last Documented On 5 8:21AM ; [facility] Not a current smoker. 06/05/2021 Last Documented On 5 8:21AM ; [facility] Non-smoker 06/05/2021 Last Documented On 5 8:21AM ; [facility] Smoking Status Unknown Procedures and Surgical History Includes: Procedures from this encounter Procedures Code Diagnosis Performing Provider Service Location Service Date DRAIN/INJECT, JOINT/BURSA (LEFT) Unilateral primary osteoarthritis, left knee Shikha Solano PA-C [facility] 01/27/2025 Last Documented On 5 12:39PM ; [facility] Orthovisc [place], 2cc (LEFT) [id number] Unilateral primary osteoarthritis, left knee Shikha Solano PA-C [facility] 01/27/2025 Last Documented On 5 12:39PM ; [facility] Medical History Includes: Medical History addressed during this encounter Description Last Updated Past surgical history non-contributory 0 05/05/2024 Last Documented On 5 8:21AM ; [facility] History of Thyroid Disease 05/05/2024 Last Documented On 5 8:21AM ; [facility] History of depression 06/05/2021 Last Documented On 5 8:21AM ; [facility] No recent immunization for flu Last Documented On 5 8:21AM ; [facility] No recent immunization for pneumococcal pneumonia 06/05/2021 Last Documented On 5 8:21AM ; [facility] Family History Includes: Family History addressed during this encounter Description Last Updated Family history of cancer 05/05/2024 Last Documented On 5 8:21AM ; [facility] Family history of heart disease 05/05/20 Last Documented On 5 8:21AM ; [facility] Review of Systems Includes: Review of Systems [...] Active Last Documented On 5 1:44PM ; [facility], [facility] Encounters Encounter Provider Location Date Check-In Time Check-Out Time Diagnosis [facility] Injection Shikha Solano PA-C [facility] 01/28/20 25 8:20AM 8:48AM Insurance Includes: Active Insurance Policies Plan Name Member ID Group # Subscriber Relationship Effect paris Dates 1 - [facility] [id number] Kaushik Gates 11/18/2020 - Unknown Clinical Notes Includes: Clinical Notes from this encounter * Progress note Date Encounter Last Documented by 01/27/2025 [facility]ty [facility] Injection Last documented on 01/27/2025; 9:08 AM, Shikha Solano PA-C; [facility] Active Problems & Conditions - Joint Pain [...]
--- OUTSIDE RECORDS SUMMARY | 2025-03-17 09:58 | XMS_ITS ---
Care Plan - [facility], [facility] Created on: March 17, 2025 AdileneNilay banks : 1965 Sex: Female Author Organization [facility] , [facility] Address [address] [place] [address] Phone Care Team Providers Care Numerical Control Programmer Name Role Phone Robson WISDOM, Celio Cerda Unavailable [phone] Constanza Cannon PA-C Unavailable [phone]
--- OUTSIDE RECORDS SUMMARY | 2025-03-17 09:58 | XMS_ITS | Clinical Summary ---
Author Organization [facility] , [facility] Address [address] [place] [address] Phone Care Team Providers Care Drafter Structural Name Role Phone Robson WISDOM, Celio Cerda Unavailable [phone] Constanza Cannon PA-C Unavailable [phone] Reason for Visit and Chief Complaint The Chief Complaint is: right knee pain, The Chief Complaint is: victorino knee pain Problems Includes: Problems addressed during this encounter and other active Problems All Visits Onset Date Resolved Date Provider Condition S tatus Joint Pain in the Right Knee 05/05/2024 Shikha Solano PA-C Active Last Documented On 4 8:57AM ; [facility], [facility] Joint Pain in the Left Wrist 03/22/2021 Celio Chance MD Active Last Documented On 1 3:14PM ; [facility] Joint Pain, Localized in the Left Shoulder 03/22/2021 Celio Chance MD Active Last Documented On 1 8:09AM ; [facility] Plan of Treatment No Plan of [...] On 5 9:25AM By Mitchell Mccormack ; [facility], [facility] Omeprazole 40 MG Oral Capsule Delayed Release 12/13/19 Provider: Diagnosis: Last Documented On 5 9:25AM By Mitchell Mccormack ; [facility], [facility] Atorvastatin Calcium 10 MG Oral Tablet 12/01/2024 Pr ovider: Diagnosis: Last Documented On 5 9:25AM By Mitchell Mccormack ; [facility], [facility] Omeprazole 40 MG Oral Capsule Delayed Release 09/24/20 Provider: Diagnosis: Last Documented On 5 9:25AM By Mitchell Mccormack ; [facility], [facility] Fluconazole 150 MG Oral Tablet 07/22/2024 Provider: Diagnosis: Last Documented On 5 9:25AM By Mitchell Mccormack ; [facility], [facility] Past Medications on file Percocet 5-325 MG Oral Tablet 10/06/2021 - 10/21/2021 Provider: Celio Chance MD Diagnosis: 1 po q 4h prn pain Last Documented On 1 12:54PM By Celio Chance ; [facility], [facility] Medications Administered Includes: Administered Medications from this encounter No Administered Medications Recorded Vital Signs Includes: Vital Signs from this encounter Vital Name 02/03/2025 01:45P Height (in) 69 Note: jaa Last Documented: On 02/03/2025 1:45PM ; [facility], [facility] Results Includes: Results discussed during this [...] will return as needed at this time. Social History No Social History Recorded - Smoking Status Unknown Procedures and Surgical History Includes: Procedures from this encounter Procedures Code Diagnosis Performing Provider Service Location Service Date DRAIN/INJECT, JOINT/BURSA (LEFT) Unilateral primary osteoarthritis, left knee Shikha RODRÍGUEZC [facility] 02/03/2025 Last Documented On 5 1:05PM ; [facility] Orthovisc [place], 2cc (LEFT) [id number] Unilateral primary osteoarthritis, left knee Shikha Russ ANDRES-C [facility] 02/03/2025 Last Documented On 5 1:05PM ; [facility] Medical History Includes: Medical History addressed during this encounter No Medical History Recorded Family History Includes: Family History addressed during this encounter No Family History Recorded Review of Systems Includes: Review of Systems [...] Active Last Documented On 5 1:44PM ; [facility] Encounters Encounter Provider Location Date Check-In Time Check-Out Time Diagnosis [facility]ty [facility] Injection Shikha Solano PA-C [facility] 02/04/20 25 1:43PM 2:24PM Insurance Includes: Active Insurance Policies Plan Name Member ID Group # Subscriber Relationship Effect paris Dates 1 - [facility] [id number] Kaushik Gates 11/18/2020 - Unknown Clinical Notes Includes: Clinical Notes from this encounter * Progress note Date Encounter Last Documented by 02/03/2025 [facility]ty [facility] In[facility] Last documented on 02/03/2025; 4:26 PM, Shikha Solano PA-C; [facility] Active Problems & Conditions - [...]
--- OUTSIDE RECORDS SUMMARY | 2025-03-17 09:58 | XMS_ITS | Clinical Summary ---
Author Organization [facility] Address [address] [place] [address] Phone Care Team Providers Care Manager User Experience Name Role Phone Robson WISDOM, Celio Cerda Unavailable [phone] Constanza Cannon PA-C Unavailable [phone] Reason for Visit and Chief Complaint The Chief Complaint is: right knee pain Problems Includes: Problems addressed during this encounter and other active Problems All Visits Onset Date Resolved Date Provider Condition S tatus Joint Pain in the Right Knee 05/05/2024 Shikha Solano PA-C Active Last Documented On 4 8:57AM ; [facility] Joint Pain in the Left Wrist 03/22/2021 Celio Chance MD Active Last Documented On 1 3:14PM ; [facility] Joint Pain, Localized in the Left Shoulder 03/22/2021 Celio Chance MD Active Last Documented On 1 8:09AM ; [facility], [facility] Plan of Treatment No Plan [...] Last Documented On 5 9:25AM By Mitchell [facility], [facility] Omeprazole 40 MG Oral Capsule Delayed Release 12/13/19 Provider: Diagnosis: Last Documented On 5 9:25AM By [facility] Atorvastatin Calcium 10 MG Oral Tablet 12/01/2024 Pr ovider: Diagnosis: Last Documented On 5 9:25AM By Mitchell Mccormack ; [facility], [facility] Omeprazole 40 MG Oral Capsule Delayed Release 09/24/20 Provider: Diagnosis: Last Documented On 5 9:25AM By Mitchell Mccormack ; [facility], [facility] Fluconazole 150 MG Oral Tablet 07/22/2024 Provider: Diagnosis: Last Documented On 5 9:25AM By Mitchell Mccormack ; [facility], [facility] Past Medications on file Percocet 5-325 MG Oral Tablet 10/06/2021 - 10/21/2021 Provider: Celio Chance MD Diagnosis: 1 po q 4h prn pain Last Documented On 12:54PM By Celio Chance ; [facility] Medications Administered Includes: Administered Medications from this encounter No Administered Medications Recorded Vital Signs Includes: Vital Signs from this encounter Vital Name 01/06/2025 08:49A Height (in) 69 Weight (lb) 162 Body Mass Index 23.9 Body Surface Area 1.9 Note: AH Last Documented: On 01/06/2025 8:49AM ; [facility] Results Includes: Results discussed during [...] injections of her left knee as well. Social History Description Last Updated Caffeine use 05/05/2024 Last Documented On 5 8:46AM ; [facility] Exercising regularly 05/05/2024 Last Documented On 5 8:46AM ; [facility] No recent change in diet 05/05/2024 Last Documented On 5 8:46AM ; [facility] Not a current smoker. 05/05/2024 Last Documented On 5 8:46AM ; [facility] Not using alcohol 05/05/2024 Last Documented On 5 8:46AM ; [facility] Not using drugs 05/05/2024 Last Documented On 5 8:46AM ; [facility] No recent change in diet 06/05/2021 Last Documented On 5 8:46AM ; [facility] Not a current smoker. 06/05/2021 Last Documented On 5 8:46AM ; [facility] Non-smoker 06/05/2021 Last Documented On 5 8:46AM ; [facility] Smoking Status Unknown Procedures and Surgical History Includes: Procedures from this encounter Procedures Code Diagnosis Performing Provider Service Location Service Date DRAIN/INJECT, JOINT/BURSA (RIGHT) Unilateral primary osteoarthritis, right knee Shikha Solano PA-C [facility] 01/06/2025 Last Documented On 5 11:07AM ; [facility] Orthovisc [place], 2cc (RIGHT) [id number] Unilateral primary osteoarthritis, right knee Shikha Solano PA-C [facility] 01/06/2025 Last Documented On 5 11:07AM ; [facility] Medical History Includes: Medical History addressed during this encounter Description Last Updated Past surgical history non-contributory 0 05/05/2024 Last Documented On 5 8:46AM ; [facility] History of Thyroid Disease 05/05/2024 Last Documented On 5 8:46AM ; [facility] History of depression 06/05/2021 Last Documented On 5 8:46AM ; [facility] No recent immunization for flu 1 Last Documented On 5 8:46AM ; [facility] No recent immunization for pneumococcal pneumonia 06/05/2021 Last Documented On 5 8:46AM ; [facility] Family History Includes: Family History addressed during this encounter Description Last Updated Family history of cancer 05/05/2024 Last Documented On 5 8:46AM ; [facility] Family history of heart disease 05/05/20 24 Last Documented On 5 8:46AM ; [facility] Review of Systems Includes: Review of [...] Active Last Documented On 5 1:44PM ; [facility] Encounters Encounter Provider Location Date Check-In Time Check-Out Time Diagnosis [facility]ty [facility] Injection Shikha Solano PA-C [facility] 01/06/20 25 8:43AM 9:10AM Insurance Includes: Active Insurance Policies Plan Name Member ID Group # Subscriber Relationship Effect paris Dates 1 - [employer] [id number] Kaushik Gates 11/18/2020 - Unknown Clinical Notes Includes: Clinical Notes from this encounter * Progress note Date Encounter Last Documented by 01/06/2025 Specialty Pharmacy [facility] In[facility] Last documented on 01/06/2025; 9:09 AM, Shikha Solano PA-C; [facility], [facility] Active Problems & Conditions - [...] as directed 0 days, 0 refills - [employer] Thyroid 60 MG Oral Tablet 30 days, [...]
[2025-03-17 10:21] LABS: Microscopic, Urine URINE MICROSCOPIC (MICROSCOPIC)
[2025-03-17 10:59] LABS: Appearance,Urine CLEAR (Clear); Basophils # 0.1 K/mm3 (0-0.2); Basophils % 1.7 % (0.1-2.0); Bilirubin,Urine Negative (Negative); Blood, Urine Negative (Negative); Color,Urine YELLOW (Yellow); Eosinophils # 0.7 Kmm3 (0.0-0.4); Eosinophils % 9.2 % (0.1-12.0); Glucose,Urine (UA) Negative (Negative); Hematocrit 40.7 % (37.0-47.0); Hemoglobin 13.7 g/dL (12.2-16.2); Ketones,Urine Negative (Negative); Leukocyte Esterase,Urine Negative (Negative); Lymphocytes % 27.9 % (10-50); Mean Corpuscular HGB Conc 33.7 g/dL (31.8-35.4); Mean Corpuscular Hemoglobin 28.4 pg (27.0-31.2); Mean Corpuscular Volume 84.4 fl (81-99); Mean Platelet Volume 10.3 fl (7.4-10.4); Monocytes # 0.4 K/mm3 (0.1-1.0); Monocytes % 6.2 % (1.7-9.3); Neutrophils # 3.9 K/mm3 (1.8-7.8); Neutrophils % 54.7 % (37.0-80.0); Nitrate,Urine Negative (Negative); Nucleated Red Blood Cells # 0 10^3/uL; Nucleated Red Blood Cells % 0 %; Platelet Count 290 K/mm3 (142-424); Protein,Urine Negative (Negative); Red Blood Count 4.82 M/mm3 (4.20-5.40); Red Cell Distribution Width 12.8 % (11.5-17.5); Specific Gravity, Urine <= 1.005 (1.005-1.030); Urobilinogen,Urine 0.2 EU/dl (0.2); White Blood Count 7.1 K/mm3 (4.8-10.8)
[2025-03-17 11:10] LABS: Bacteria,Urine Trace /lpf; Squamous Epithelial Cell,Urine Occasional #/hpf (0-5)
[2025-03-17 11:17] LABS: Albumin Level 4.4 g/dl (3.5-5.0); Chloride 102 mmol/L (98-107); Potassium 4.2 mmoL/L (3.5-5.1); Sodium 136 mmol/L (136-145)
[2025-03-17 11:20] LABS: Alanine Aminotransferase 32 U/L (12-78); Albumin/Globulin Ratio 1.8 (1.1-1.8); Alkaline Phosphatase 50 U/L (38-126); Anion Gap 10.2 mEq/L (5-15); Aspartate Amino Transferase 34 U/L (14-36); Bilirubin,Total 0.5 mg/dl (0.2-1.3); Blood Urea Nitrogen 8 mg/dl (7-17); Calcium 9.4 mg/dl (8.4-10.2); Carbon Dioxide 28 mmol/L (22.0-30.0); Estimated Glomerular Filt Rate 74 ml/min (>60); GFR (African American) 89 ML/MIN (>60); Globulin 2.4 g/dL (1.3-3.2); Glucose 82 mg/dl (74-100); Iron 132 ug/dL (37-170); Magnesium 1.9 mg/dl (1.6-2.3); Total Protein,Serum 6.8 g/dl (6.3-8.2)
[2025-03-17 11:51] LABS: Thyroid Stimulating Hormone 0.33 uIU/mL (0.465-4.68)
[2025-03-17 12:23] LABS: Vitamin B12 > 1000 pg/mL (239-931)
[2025-03-18 08:33] LABS: DHEA-Sulfate 37.9 ug/dL (29.4-220.5); Estradiol 58.4 pg/mL (.); FSH 55.7 mIU/mL (.); LH 43.1 mIU/mL (.); Sex Hormone Binding Globulin 88.9 nmol/L (17.3-125.0); Triiodothyronine (T3) Free 4.1 pg/mL (2.0-4.4)
[2025-03-18 12:33] LABS: Progesterone 5.1 ng/mL (.)
[2025-03-19 14:30] LABS: Miscellaneous Test SCANNED IMAGE
[2025-03-20 15:11] LABS: Vitamin C 1.8 mg/dL (0.4-2.0)
[2025-03-26 21:10] LABS: Testosterone, Total, LC/MS 134 ng/dL (.)
== END 2025-03-17 23:59 | disposition home or self-care (01) ==
LOC: LAB 09:55
PROVIDERS: PCP Nurse Practitioner Family; Visit Provider General Practice
DX: Z13.220 Encounter for screening for lipoid disorders (principal); R53.83 Other fatigue; Z79.890 Hormone replacement therapy
CPT/HCPCS: 36415; 80053; 80061; 81001; 82180; 82607; 82627; 82670; 82746; 83001; 83002; 83036; 83540; 83704; 83735; 84144; 84146; 84270; 84305; 84403; 84443; 84481; 85025

== ENCOUNTER 2025-04-01 11:00 | Day surgery (SDC) | payer BC, SELFPAY ==
[2025-03-30 14:24] VITALS: BMI 21.7
[2025-04-01 11:28] VITALS: BP 100/64; PULSE 72; RESP 18; TEMP 36.4; O2SAT 99
[2025-04-01] MEDS: LACTATED RINGERS 1000ML 1,000 ML 50 ML IV (11:28)
--- NOTE | 2025-04-01 11:46 | EXP.ANES.CKL ---
[facility] Disclaimer: The information contained in this section may have been updated after the patient was seen, as this information can be updated by other users. Medical History Sleep apnea Depression History of gastroesophageal reflux (GERD) Hypothyroid Skin cancer Former cigarette smoker Metatarsal stress fracture of left foot High cholesterol GERD (gastroesophageal reflux disease) Anxiety Surgical History Hx of tubal ligation Hx of removal of ovary Hx of section Family History Other No significant family history Social History Smoking Status: Former smoker alcohol intake: never substance use type: denies use current occupational status: employed Travel in the last 8 weeks?: None household members: spouse and family housing: house caffeine: Yes Have you lived/traveled outside US in past 30 days?: No Contact w/someone who lives/traveled outside US past 30 days?: No Exposure to someone with infectious disease in past 14 days?: No Do you have a fever (greater than 100.4 F or 38 C)?: No Have you tested positive for COVID-19?: No Exposed to someone with COVID-19 in past 14 days?: No Do you have a sore throat?: No Do you have a cough?: No Do you have any weakness?: No Do you have any diarrhea?: No Are you experiencing any unusual bleeding?: No Do you have any muscle aches/pain?: No Do you have any abdominal pain?: No Are you experiencing loss of taste or smell?: No [facility] Anesthesia Checklist Patient Identification Patient Identification: Arm Band and Verbal (Name & ) Structural Data Admitted From: Home Planned Operative Procedure/s: EGD Consent for Planned Operative Procedure(s) Verified: Yes Verified Documents: Surgical Consent and History and Physical NPO Status Verified Time NPO: 00:00 Additional verifications Anesthesia Reactions: No Hx Blood Transfusions: No Airway Assessment Mallampati Score:: Class II Dentition: Good Dentition Neurological Assessment Level of Consciousness: Awake, Alert and Appropriate Hx Seizures: No Anesthesia Plan Anesthesia Risk discussed: Yes Anesthesia Plan: Verified ASA Class: II Anesthesia Type: MAC
--- NOTE | 2025-04-01 12:06 | EXP.HP ---
History of Present Illness *Admission Date: 04/01/25 *Reason for visit:: History of eosinophilic esophagitis *History of present illness: Mrs. Amos is a 59-year-old female who is here for EGD because of her recurrent symptoms of dysphagia. She does have a history of eosinophilic esophagitis. She also has belching and reflux. The examination is deemed medically necessary for diagnostic/therapeutic EGD. The patient has been seen, interviewed and examined prior to the procedure by both myself and the anesthesia provider. [facility] Disclaimer: The information contained in this section may have been updated after the patient was seen, as this information can be updated by other users. Medical History Sleep apnea Depression History of gastroesophageal reflux (GERD) Hypothyroid Skin cancer Former cigarette smoker Metatarsal stress fracture of left foot High cholesterol GERD (gastroesophageal reflux disease) Anxiety Surgical History Hx of tubal ligation Hx of removal of ovary Hx of section Family History Other No significant family history Social History Smoking Status: Former smoker alcohol intake: never substance use type: denies use current occupational status: employed Travel in the last 8 weeks?: None household members: spouse and family housing: house caffeine: Yes Have you lived/traveled outside US in past 30 days?: No Contact w/someone who lives/traveled outside US past 30 days?: No Exposure to someone with infectious disease in past 14 days?: No Do you have a fever (greater than 100.4 F or 38 C)?: No Have you tested positive for COVID-19?: No Exposed to someone with COVID-19 in past 14 days?: No Do you have a sore throat?: No Do you have a cough?: No Do you have any weakness?: No Do you have any diarrhea?: No Are you experiencing any unusual bleeding?: No Do you have any muscle aches/pain?: No Do you have any abdominal pain?: No Are you experiencing loss of taste or smell?: No Other Medical History Have you received the Flu Vaccine for this season: Yes Have you received the Pneumonia Vaccine: No Review of Systems Review of Systems Review of systems (narrative): Negative *Cardiovascular Comments: Negative *Gastrointestinal Comments: Negative *Genitourinary Comments: Negative *Musculoskeletal Comments: Negative *Neurologic Comments: Negative Meds Home Medications and Allergies Home Medications ?Medication ?Instructions ?Recorded ?Confirmed ?Type testosterone 75 mg implant pellet 0 mg implant MONTHLY 02/01/20 04/01/25 History progesterone micronized 200 mg 200 mg PO HS 10/04/21 04/01/25 History capsule thyroid (pork) 60 mg tablet ([employer]PER[employer] HELPER 60 mg PO DAILY #90 tabs 11/08/22 04/01/25 Rx Thyroid) omeprazole 40 mg capsule,delayed 40 mg PO DAILY 90 days #90 caps 09/24/24 04/01/25 Rx release atorvastatin 10 mg tablet 10 mg PO DAILY 03/30/25 04/01/25 History escitalopram oxalate 10 mg tablet 10 mg PO DAILY 03/30/25 04/01/25 History (Lexapro) New Prescriptions to Start Prescriptions: Allergies Allergy/AdvReac Type Severity Reaction Status Date / Time clarithromycin (From Biaxin) Allergy Vomiting Verified 04/01/25 11:26 erythromycin base Allergy Vomiting Verified 04/01/25 11:26 Exam Data for Last 24 hours Vital signs and Labs for Last 24 Hours: Temp Pulse Resp BP Pulse Ox O2 Del Method 97.6 F 72 18 100/64 L 99 Room Air 04/01/25 11:28 04/01/25 11:28 04/01/25 11:28 04/01/25 11:28 04/01/25 11:28 04/01/25 11:28 I & O for Last 24 hours: Intake & Output 03/29/25 03/30/25 03/31/25 04/01/25 23:59 23:59 23:59 23:59 Weight 147 lb *Routine HEENT Exam Head: Present normocephalic Eye: Present EOMI and PERRL ENT: Present mucous membranes moist *Routine Neck Exam Neck: Present supple *Routine Respiratory Exam Respiratory: Present CTA bilaterally *Routine Cardiovascular Exam Cardiovascular: Present RRR *Routine Abdominal Exam Abdominal: Present soft and normoactive bowel sounds; Absent tenderness *Routine Rectal Exam Rectal:: deferred *Routine Genitalia Exam Genitalia:: deferred *Routine Extremities Exam Extremities: Absent cyanosis, clubbing or edema *Routine Skin Exam Skin: Present warm; Absent rash *Routine Neurological Exam Neurological: Present alert and oriented X3 Assessment and Plan *Assessment and plan (1) Dysphagia: Status: Acute Category: Medical Code(s): R13.10 - Dysphagia, unspecified (2) Eosinophilic esophagitis: Status: Acute Category: Medical Code(s): K20.0 - Eosinophilic esophagitis (3) Belching: Status: Acute Category: Medical Code(s): R14.2 - Eructation (4) GERD (gastroesophageal reflux disease): Status: Acute Category: Medical Code(s): K21.9 - Gastro-esophageal reflux disease without esophagitis Plan A/P: 1. Recurrent dysphagia with reflux, belching and prior history of eosinophilic esophagitis is the preprocedural diagnosis. The patient will be anesthetized/sedated using MAC sedation. The patient has been seen and examined. Cardiac and lung assessment prior to the examination is stable. Proceed with planned EGD.
[2025-04-01 12:11] VITALS: O2SAT 97
--- NOTE | 2025-04-01 12:14 | P.PCN_ITS ---
[facility] Procedure Note Date: 04/01/25 Procedure Note:: Upper Endoscopy Procedure Report: Esophagogastroduodenoscopy with cold biopsies and TTS balloon dilation Endoscopost: Ulises Persaud II, MD Referring Physician: Jf Canchola MD Date of Procedure: April 01, 2025 Equipment: Olympus GIF 190 standard upper endoscope Sedation: MAC sedation Indications: Mrs. Amos is a 59-year-old female who is here for diagnostic/therapeutic upper endoscopy. The patient does have a history of eosinophilic esophagitis diagnosed previously and had an EGD with me in November 2022 with biopsies of the distal and proximal esophagus consistent with eosinophilic esophagitis with eosinophils 70 per high-power field in the distal esophagus and 30 per high-power field in the proximal esophagus. Her RAST food allergy testing did show IgE milk class I allergy to dairy. She has eliminated dairy and stayed on omeprazole. More recently she has had belching and recurrent reflux and recurrent dysphagia. She reports no bloating or gassiness. She attributes this to drinking a preworkout drink that began about the time her symptoms started. Her last colonoscopy was in October 2022. Her colonoscopy in May 2018 revealed 6 or 7 polyps (tubular adenomas). Procedure: Prior to the procedure, a history and physical exam was performed, and patient's medications and allergies were reviewed. The risks, benefits and alternatives of the sedation and procedure were discussed with the patient. All questions were answered and informed consent was obtained. The patient was brought to the procedure room. Patient identification and proposed procedure were verified by the physician and the nurse. The patient was placed in a left lateral decubitus position and the scope was passed under direct vision. Throughout the procedure, the patient's blood pressure, pulse, and oxygen saturations were monitored continuously. The upper GI endoscopy was accomplished without difficulty. The patient tolerated the procedure well. Findings: The scope was passed directly into the upper esophagus and advanced to the fourth portion of duodenum and proximal jejunum. Cold biopsies were taken x 4 of the proximal jejunum for disaccharidase assay. The proximal jejunum, the post bulbar duodenum, ampulla and duodenal bulb were normal with normal mucosa and conniventes. The scope was withdrawn through a normal duodenal bulb and pylorus into the stomach. The antrum, body and fundus of the stomach were grossly normal. There was a very small sliding 1 to 2 cm hiatal hernia. The scope was then withdrawn into the esophagus. There was a serrated Z-line with a single tongue of salmon-colored mucosa that was biopsied (cold biopsies) to rule out intestinal metaplasia. There was very minor corrugation of the distal esophagus but not the proximal esophagus. There was no furrowing, striations or other mucosal abnormalities. Cold biopsies were taken from both the distal and proximal esophagus to confirm eosinophilic esophagitis. The entire esophagus was dilated to 60 Citizen Of [place]/20 mm with a TTS hydrostatic balloon. There was minimal resistance. The remainder of the esophageal mucosa was normal. Impression: 1. Nonerosive GERD with very small sliding hiatal hernia and mild esophageal dysmotility 2. Very mild distal esophageal corrugation Plan: I will follow-up the biopsies and discussed the findings with the patient and family. I do feel that her present symptoms are functional GERD/gas driven bile reflux. We will discuss additional treatment options. If the biopsies do show active eosinophilic esophagitis on both proximal and distal esophageal biopsies, would consider Dupixent. If the EOE is in remission, I would consider other treatment options and have her continue PPI therapy with omeprazole. One underutilized therapy for upright GERD (functional GERD) is diaphragmatic breathing. It may be worthwhile that she implement diaphragmatic breathing on a regular basis. Recent studies have shown that breathing exercises with diaphragmatic breathing can enhance the crural diaphragm strength at the lower esophageal sphincter and strengthen the diaphragm barrier mechanism, reduce gastroesophageal reflux and subsequent damage. Especially in upright GERD, diaphragmatic breathing reduces the number of postmeal reflux events by increasing the difference between LES (lower esophageal sphincter) and gastric pressure. In other words, it changes pressure gradients that would otherwise favor gastroesophageal reflux. Pressure gradients are often related to gas pressure and any person with belching related reflux with associated bloating are very apt to benefit from diaphragmatic breathing.
[2025-04-01 12:28] VITALS: BP 97/62; PULSE 83; RESP 16; TEMP 36.3; O2SAT 98
[2025-04-01 12:38] VITALS: BP 98/61; PULSE 83; RESP 16; O2SAT 95
[2025-04-01 12:48] VITALS: BP 92/63; PULSE 84; RESP 16; O2SAT 98
[2025-04-01 12:58] VITALS: BP 98/66; PULSE 82; RESP 16; O2SAT 100
[2025-04-06 14:13] LABS: Disclaimer Notes (.); Interpretation Notes (.); Lactase 68.76 (>/= 14.0); Maltase 283.14 (>/= 110.0); Palatinase 23.34 (>/= 8.5); Reference Notes (.); Sucrase 98.07 (>/= 25.0)
== END 2025-04-01 12:58 | disposition home or self-care (01) ==
PROVIDERS: PCP Family Medicine; Visit Provider Internal Medicine Gastroenterology
PROC: 0DJ08ZZ Inspection of Upper Intestinal Tract, Via Natural or Artificial Opening Endoscopic (ICD-10-PCS; CPT 43239; principal; 2025-04-01 12:30)
DX: R13.10 Dysphagia, unspecified (principal); K20.0 Eosinophilic esophagitis; R14.2 Eructation; K21.9 Gastro-esophageal reflux disease without esophagitis; Z86.0101 Personal history of adenomatous and serrated colon polyps; K44.9 Diaphragmatic hernia without obstruction or gangrene; K22.4 Dyskinesia of esophagus
CPT/HCPCS: 43239; 43249; 82657; C1726; J7120

== ENCOUNTER 2025-08-18 13:15 | Outpatient (CLI) | payer BC, SELFPAY ==
--- OUTSIDE RECORDS SUMMARY | 2025-08-19 10:53 | XMS_ITS | Clinical Summary ---
Author Organization [facility] Address [address] [place] [address] Care Team Providers Care Sausage Smoker Name Role Phone Mis Colmenares Primary Care Provider [phone] Allergies Active Allergy Reactions Criticality Noted Date Comments Clarithromycin GI Intolerance 11/28/2016 Erythromycin GI Intolerance Low 07/12/2017 Medications escitalopram (Lexapro) 10 MG tablet Take 10 mg by mouth Daily. Active fluticasone (FLONASE) 50 MCG/ACT nasal spray instill 1 spray into each nostril at bedtime for 3 MONTHS 0 10/21/2018 Active Active Problems Problem Noted Date Diagnosed Date Abnormal stress test 06/24/2020 Overview (06/24/2020): Added automatically from request for surgery [id number] Family History Medical History Relation Name Comments Heart disease Father [place] Cancer Mother lung Relation Name Status Comments Father Mother Social History Tobacco Use Types Packs/Day Years Used Date Smoking Tobacco: Former Smokeless Tobacco: Former Quit: 08/2015 Comments:quit August 2015 Alcohol Use Standard Drinks/Week Comments No 0 (1 standard drink = 0.6 oz pur e alcohol) Abuse Screen Answer Date Recorded Unsafe at Home or Work/School Not on file Feels Threatened by Someone? Not on file 07/2023 Does Anyone Keep You from Co ntacting Others or Doint Things Outside the Home? Not on file 08/26/2023 Physical Sign of Abuse Present Not on file 1 Housing Stability Answer Date Recorded Current Living Arrangements Not on file 07/2023 Potentially Unsafe Housing Conditions Not on anna e 08/26/2023 Family and Community Support Answer Miki e Recorded Help with Day-to-Day Activities Not on file 08/26/2023 Lonely or Isolated Not on file 08/26/2023 Employment Answer Date Recorded Do you want help finding or keeping work or a maye b? Not on file 08/26/2023 Disabilities Answer Date Recorded Concentrating, Remembering, or Making Decisions Difficulty Not on file 08/26/2023 Doing Errands Independently Difficulty Not on fi le 08/26/2023 Education Answer Date Recorded Help with school or training? Not on file Preferred Language Not on file 08/26/2023 Comments No Sex and Gender Information Value Date Recorded Sex Assigned at Not on file Legal Sex Female 10:33 AM EDT Gender Identity Not on file Sexual Orientation Not on file Last Filed Vital Signs Vital Sign Reading Time Taken Comments Blood Pressure 88/62 07/01/2020 3:04 PM EDT post ambulatory Pulse 61 07/01/2020 3:00 PM EDT Temperature 36.7 C (98 F) 07/01/2020 10:30 AM EDT Respiratory Rate 16 07/01/2020 12:0 1 PM EDT Oxygen Saturation 97% 07/01/2020 3:0 0 PM EDT Inhaled Oxygen Concentration - - Weight 71.9 kg (158 lb 9.6 oz) 07/01/2020 10:30 AM EDT Height 175.3 cm (5' 9 ) 07/01/2020 10:3 0 AM EDT Body Mass Index 23.42 07/01/2020 10:30 AM EDT Plan of Treatment Health Maintenance Due Date Last Done Comments Annual Gynecologic Pelvic and Breast Exam 1966 TDAP/TD VACCINES (1 - Tdap) 1985 MAMMOGRAM 2006 COLOGUARD 2011 COLON CANCER SCREENING 5 YEAR SIGMOIDOSCOPY 2011 COLONOSCOPY [address] CANCER SCREENING 2011 CT COLONOGRAPHY 2011 FECAL OCCULT BLOOD TEST 2011 FIT Testing (1 year) 2011 Pneumococcal Vaccine 50+ (1 of 1 - PCV) 2016 ZOSTER VACCINE (1 of 2) 2016 ANNUAL PHYSICAL 06/07/2017 HEPATITIS C SCREENING 06/07/2017 INFLUENZA VACCINE 06/18/2025 Insurance Care Teams Sausage Smoker Relationship Specialty Start Date End Date Mis Colmenares PA [address] [place] [address] YULI PARRA [address] PCP - General Family Medicine 11/28/16
--- OUTSIDE RECORDS SUMMARY | 2025-08-19 10:53 | XMS_ITS | Patient Health Record ---
Author Organization [facility] Address [address] [facility] [address] [place] [address] Care Team Providers Care Route Cdl Driver Name Role Phone Stacey Miranda Unavailable [phone] Allergies Allergen (clinical drug ingredient) Drug/Non Drug Allergy documented on EMR Reaction Allergy Type Onset Date Status ERYTHROMYCIN STEARAT E (ERYTHROMYCIN STEARATE TABS) Unspecified Drug Allergy 06/17/2013 Active Reason For Referral No Information Plan Of Treatment No Information Medical (General) History Medical History History ICD Code Endometriosis Anxiety Depression CITRACAL SLOW RELEASE [id number] [phone] MG-MG-UNIT ORAL TABLET EXTENDED RELEASE 24 HOUR MONTELUKAST SODIUM TABLET ESCITALOPRAM OXALATE TABLET JINTELI TABLET Surgical History Surgery Date(Month/Year) CS, Lumpectomy
== END 2025-08-18 23:59 | disposition home or self-care (01) ==
LOC: LAB.DROPOF 08-19 10:47
PROVIDERS: PCP Nurse Practitioner Obstetrics & Gynecology; Visit Provider Nurse Practitioner Obstetrics & Gynecology
DX: N89.8 Other specified noninflammatory disorders of vagina (principal)
CPT/HCPCS: 87491; 87529; 87591; 87661; 87798; 87801

== ENCOUNTER 2025-09-10 07:50 | Outpatient (CLI) | payer BC, SELFPAY ==
--- OUTSIDE RECORDS SUMMARY | 2025-09-10 07:52 | XMS_ITS | Referral Summary ---
Author Organization [facility] ([place], [place], [place], [place]) Address [address] [place] [address] Care Team Providers Care Strike Operations Officer Name Role Phone Unavailable Primary Care Provider Unavailabl e Social History Tobacco Use Types Packs/Day Years Used Date Smoking Tobacco: Never Assessed Comments Unknown Sex and Gender Information Value Date Recorded Sex Assigned at Female 05/15/2022 1:55 PM CDT Legal Sex Female 1:55 PM CDT Gender Identity Female 05/15/2022 1:55 PM CDT Sexual Orientation Not on file Plan of Treatment Not on file Procedures Procedure Name Priority Date/Time Associated Diagnosis Comments CT LUNG SCREENING INITIAL Routine 04/06/2025 9:39 AM EDT Encounter for screening for lung cancer from Last 3 Months or Most Recently Relevant to Health Maintenance Results * CT Lung Screening Initial (04/06/2025 9:39 AM EDT) Anatomical Region Laterality Modality Chest, Lung Computed Tomogra phy (CT) 04/06/2025 1:16 PM EDT Impressions 04/06/2025 1:18 PM EDT Groundglass nodule in the anterior left upper lobe measuring 13 mm. Left lower lobe pulmonary nodule measuring 4 mm.. Lung RADS category 3. 6 month low-dose chest CT recommended. Images reviewed, interpreted, and dictated by Dr. Carmelo Cardoza. Transcribed by Nahomy Hidalgo PA-C. Narrative 04/06/2025 1:[address] SCAN OF THE CHEST 04/06/2025 9:33 AM HISTORY: Screening CT. Former smoker who quit 10 years prior with a 32 pack-year smoking history. COMPARISON: None. PROCEDURE: Axial images were obtained from the lung apex to the mid abdomen by computed tomography. Low-dose protocol was utilized. The CTDIvol is 2.9 mGy. The DLP is 1.7 mGy*cm. This study was performed with techniques to keep radiation doses as low as reasonably achievable, (ALARA). Individualized dose reduction techniques using automated exposure control or adjustment of mA and/or kV according to the patient size were employed. FINDINGS: CHEST: There is no axillary adenopathy. There is no hilar or mediastinal adenopathy. Heart size is normal. There is no pericardial or pleural effusion. Limited images of the upper abdomen are unremarkable. There is a 13 mm groundglass nodule in the anterior left upper lobe. There is a 4 mm left lower lobe pulmonary nodule identified on image 84. us Yaya Arteaga MD IM CT ORDERABLES Final Result from Last 3 Months or Most Recently Relevant to Health Maintenance
--- OUTSIDE RECORDS SUMMARY | 2025-09-10 07:52 | XMS_ITS | Clinical Summary ---
Author Organization [facility] ([place], [place], [place], [place]) Address [address] [place] [address] Care Team Providers Care Christian Science Nurse Name Role Phone Unavailable Primary Care Provider Unavailabl e Social History Tobacco Use Types Packs/Day Years Used Date Smoking Tobacco: Never Assessed Comments Unknown Sex and Gender Information Value Date Recorded Sex Assigned at Female 05/15/2022 1:55 PM CDT Legal Sex Female 1:55 PM CDT Gender Identity Female 05/15/2022 1:55 PM CDT Sexual Orientation Not on file Plan of Treatment Health Maintenance Due Date Last Done Comments CT Colonography 1966 Colonoscopy 1966 Colorectal Cancer Screening 1966 FOBT/FIT 1966 Fit-DNA (Cologuard) 1966 Sigmoidoscopy 1966 Depression Screening (12+) 1978 Tobacco Cessation Counseling and Screening (12+) 08/04 HIV Screening 1981 Hepatitis C Screening 1984 DTAP/TDAP/TD VACCINES (1 - Tdap) 1985 Pap Smear 1987 Breast Cancer Screening 2006 Lipid Panel 2011 Pneumococcal 50+ years (1 of 1 - PCV) 2016 Shingles Vaccine (Zoster) (1 of 2) 2016 COVID-19 VACCINE (1 - season) 2025 Influenza Vaccine (#1) 2025 Lung Cancer Screening 10/03/2025 04/06/2025 Procedures Procedure Name Priority Date/Time Associated Diagnosis [...] lobe pulmonary nodule identified on image 84. Yaya Arteaga MD IMG CT ORDERABLES Final Result from Last 3 Months or Most Recently Relevant to Health Maintenance
--- OUTSIDE RECORDS SUMMARY | 2025-09-10 07:52 | XMS_ITS | Clinical Summary ---
Author Organization [facility] Address [address] [place] [address] Care Team Providers Care Xerox Machine Operator Name Role Phone Mis Colmenares Primary Care Provider [phone] Allergies Active Allergy Reactions Criticality Noted Date [...] (06/24/2020): Added automatically from request for surgery [id number] Family History Medical History Relation Name Comments Heart disease Father [place] Cancer Mother lung Relation Name Status Comments [...] 06/07/2017 INFLUENZA VACCINE 06/18/2025 Insurance Care Teams Xerox Machine Operator Relationship Specialty Start Date End Date Mis Colmenares PA [address] [place] [address] YULI PARRA [address] PCP - General Family Medicine 11/28/16
--- OUTSIDE RECORDS SUMMARY | 2025-09-10 07:53 | XMS_ITS | Data Portability ---
Author Organization [facility] Address [address] [address] [place] [address] Care Team Providers Care Solar Energy Consultant And Designer Name Role Phone HYUN CANCHOLA Primary Care Provider Assessment No assessment recorded. Plan of Treatment [...] By Organization Details Last Modified Time 11/02/2024 [id number] 1. Recommended i n lab sleep study 2. F/U W/Results Not available 11/02/2024 11:27:35 We discussed options [...] She prefers to potentially do this in [place] if possible [email or web address] Not available 11/02/2024 12:28:42 Reason for Referral None Reported. Procedures Surgical History Date Name Laterality Status Provider Name and Address Organization Details Recorded Time special ENT procedures completed Melissa Prabhakar [facility] 11/02/2024 11:22:24 Imaging Results None recorded. Procedure Notes None recorded. Medical Equipment None Reported. Allergies Allergen ID Allergen Name Allergen Category Reaction Reaction Severity Criticality Documentation Date Start Date Code Code System Note Provider Name and Address Organization Details Recorded Time [id number] Biaxin medicatio n Not available Not available Not available 11/02/2024 9 RxNorm Chester Casarez [facility] 11:16:56 Medications Name Sig Start Date [...] Not Available Not Available No t Available MOVIE EDITOR Thyroid 60 mg tablet active Not Available Not Available Not Available Vitals Date Recorded Body height Body mass index (BMI) Body weight Body temperature Heart rate Respiratory rate Oxygen saturation Oxygen saturation in Arterial blood by Pulse oximetry Systolic And Diastolic Provider Name and Address Organization Details Last Updated DateTime 175.26 cm 25.4 kg/m2 65241.2 9 g 99.1 [degF] 78 /min 16 /min 98 % 98 % 107/66 mm[Hg] Chester Casarez [facility] 11:16:39 Social History None recorded. Functional Status None recorded. Mental Status None recorded. Family History Nothing Reported. Medical History Condition Response Kidney Stones N Hyperthyroidism Y Heart Arrhythmia N Emphysema N Esophagus/swallowing troubles Y Depression Y Lung Disease N Hypothyroidism N Glaucoma N Anesthesia Complications N Anxiety Disorder Y Hearing Loss N Arthritis N Acid Reflux (GERD) N Cancer N Stroke N Hoarseness N Alcohol Overuse/Alcohol Abuse N High Cholesterol Y Snoring problems Y Liver Disease N Headaches N Kidney Disease N Allergies/Hayfever Y Heart Problems N Mental handicap N Ear or Hearing Problems N Gallbladder Disease N Migraines N Thyroid Problems Y Goiter N Anemia N Immune System Disorder N Chest Pain N Stomach trouble N Ulcers N Heart Attack (ND) N Diabetes N Rheumatic Fever N Bleeding Disorder N Tuberculosis N AIDS/HIV N Hyperlipidemia N Asthma N Epilepsy/Seizures N Sleep Disorder Y Hepatitis N Heart Disease N Hypertension N Gynecological HistoryNo gynecological history recorded. Obstetrics History GPAL:G 0 P 0 0 0 0 Past Encounters Encounter ID Performer Location Encounter Start Date Encounter Closed Date Diagnosis/Indication Diagnosis SNOMED-CT Code Diagnosis ICD10 Code Diagnosis IMO Codes Diagnosis Note [id number] MD [facility] [address] [place] [address] 11/02/2024 10:57:19 11/02/2024 11:33:12 Obstructive sleep apnea syndrome 70870980 G47.33 Insurance: [facility] Medicine Physician: PCPPSG Date: 0ct 24AHI Using 4% Rule:7.4Ce ntral/Mixe d Percentage : minimalBMI : 25.4DISE: pendingHas tried and failed/ret urned/does not wear anymore CPAP due to keeps awake at nightwon't stay onPatient has tried an oral appliance. Health Concerns Section Related Observation LastModified by Organization Detai ls LastModified Time None Recorded Concern Status LastModified by Organization Details LastModified Time None Recorded Advance Directives Directive None Recorded Payers Insurance Date Sequence Insurance Name Policy Number Policy Blum Covered Member ID Blum Member ID Guarantor Name 10/30/2024 1 [place] [id number] 1 Dennis Amos [id number] Nilay Amos Notes Date Note Type Note Provider Name and Address Organization Details Recorded Time 11/02/2024 text/html Sintiahong comes in today for consultation at the request of Dr.Kenneth Canchola for an evaluation of inspire.-Pt has had a sleep study 09/10-Pt has used CPAP several years with no resolution-Pt has used a mouth guard-Pt states that she feels like chokes when she used the CPAP Machine ANDREW STEWART MD [address] [place], [address], [facility] 11/02/2024 12:28:52 OBGyn Episode No OBEpisode recorded.
--- OUTSIDE RECORDS SUMMARY | 2025-09-10 07:53 | XMS_ITS | Patient Health Record ---
Author Organization [facility] Address [address] [facility] [address] [place] [address] Care Team Providers Care Bottom Worker Name Role Phone JamieStacey benitez Unavailable [phone] Allergies Allergen (clinical drug ingredient) Drug/Non Drug Allergy documented on EMR Reaction Allergy Type Onset Date Status Information temporarily unavailable ERYTHROMYCIN STEARATE (ERYTHROMYCIN STEARATE TABS) Unspecified Drug Allergy 06/17/2013 Active Reason For Referral No Information Plan Of Treatment No Information Medical (General) History Medical History History ICD Code Endometriosis Anxiety Depression CITRACAL SLOW RELEASE 600-40 -500 MG-MG-UNIT ORAL TABLET EXTENDED RELEASE 24 HOUR MONTELUKAST SODIUM TABLET ESCITALOPRAM OXALATE TABLET JINTELI TABLET Surgical History Surgery Date(Month/Year) CS, Lumpectomy
--- NOTE | 2025-09-10 08:00 | MM_ITS ---
PROCEDURE INFORMATION: Exam: MG Bilateral Screening 3D Mammography Exam date and time: 09/10/2025 8:06 AM Age: 60 years old Clinical indication: Screening examination TECHNIQUE: Imaging protocol: Bilateral Screening tomosynthesis and 2D mammography including computer-aided detection (CAD) when performed. COMPARISON: 1. MG MM DIG SCREENING MAMM BI W/CAD 09/08/2024 7:49 AM 2. MG MM DIG SCREENING MAMM BI W/CAD 07/05/2023 3:20 PM FINDINGS: MAMMOGRAPHY: Breast composition: The breasts are extremely dense, which lowers the sensitivity of mammography. Mass: None. Architectural distortion: None. Calcifications: No suspicious calcifications. Asymmetric density: None. Skin thickening: None. Axillary adenopathy: None. IMPRESSION: No mammographic evidence of malignancy. Annual screening is recommended unless otherwise clinically indicated. ASSESSMENT: BI-RADS Category 1: Negative.
[2025-09-10 08:03] LABS: Hematocrit 38.0 % (37.0-47.0); Hemoglobin 12.6 g/dL (12.2-16.2); Immature Granulocytes % 0.3 %; Mean Corpuscular HGB Conc 33.2 g/dL (31.8-35.4); Mean Corpuscular Hemoglobin 28.3 pg (27.0-31.2); Mean Corpuscular Volume 85.2 fl (81-99); Nucleated Red Blood Cells % 0 %; Platelet Count 296 K/mm3 (142-424); Red Blood Count 4.46 M/mm3 (4.20-5.40); Red Cell Distribution Width-SD 40.6 fL; White Blood Count 7.2 K/mm3 (4.8-10.8)
[2025-09-10 08:48] LABS: Albumin Level 3.8 g/dl (3.5-5.0); Chloride 99 mmol/L (98-107); Potassium 4.6 mmoL/L (3.5-5.1); Sodium 132 mmol/L (136-145)
[2025-09-10 08:51] LABS: Alanine Aminotransferase 28 U/L (12-78); Albumin/Globulin Ratio 1.4 (1.1-1.8); Anion Gap 8.6 mEq/L (5-15); Aspartate Amino Transferase 35 U/L (14-36); Blood Urea Nitrogen 8 mg/dl (7-17); Carbon Dioxide 29 mmol/L (22.0-30.0); Cholesterol 144 mg/dl (140-200); Creatinine,Serum 0.70 mg/dl (0.52-1.04); Estimated Glomerular Filt Rate 86 ml/min (>60); GFR (African American) 104 ML/MIN (>60); Globulin 2.8 g/dL (1.3-3.2); Total Protein,Serum 6.6 g/dl (6.3-8.2); Triglycerides 116 mg/dl (30-150)
[2025-09-10 08:52] LABS: Alkaline Phosphatase 50 U/L (38-126); Bilirubin,Total 0.7 mg/dl (0.2-1.3); Calcium 8.2 mg/dl (8.4-10.2); Glucose 76 mg/dl (74-100); HDL Cholesterol 44 mg/dl (40-60)
[2025-09-10 09:09] LABS: Free Thyroxine Index 2.2 ug/dL (5.93-13.13); T4 (Thyroxine) 7.2 ug/dl (5.53-11.0); Triiodothryronine (T3) Uptake 30 % (23.5-40.5)
[2025-09-10 09:23] LABS: Thyroid Stimulating Hormone 0.20 uIU/mL (0.465-4.68)
== END 2025-09-10 23:59 | disposition home or self-care (01) ==
LOC: RAD 07:51
PROVIDERS: PCP Nurse Practitioner Family; Visit Provider Nurse Practitioner Obstetrics & Gynecology
DX: Z12.31 Encounter for screening mammogram for malignant neoplasm of breast (principal); Z01.419 Encounter for gynecological examination (general) (routine) without abnormal findings; R92.333 Mammographic heterogeneous density, bilateral breasts; E03.9 Hypothyroidism, unspecified
CPT/HCPCS: 36415; 77063; 77067; 80053; 80061; 84436; 84443; 84479; 85025